=== PATIENT | female | born 1985 | race Caucasian/White ===

== ENCOUNTER 2018-03-12 19:46 | Emergency (ER) | payer OTHER, SELFPAY ==
[2018-03-12 19:46] VITALS: BP 152/77; PULSE 73; RESP 18; TEMP 36.8; O2SAT 100; BMI 34.0
--- NOTE | 2018-03-12 19:58 | RAD_ITS ---
STUDY: X-RAY - LEFT FOOT CLINICAL: Female, 32 years old. Trauma TECHNIQUE: 3 view(s) of the foot. COMPARISON: None. FINDINGS: Normal talus, calcaneus, and tarsal bones. Normal visualized subtalar, talonavicular, calcaneocuboid, tarsal and tarsometatarsal articulations. Normal metatarsi. Normal metatarsophalangeal joint of the great toe. Normal tibial and fibular sesamoid bones. Normal interphalangeal joint of the great toe. Normal phalanges of the great toe. Normal second through fifth metatarsophalangeal joints. Normal interphalangeal joints and phalanges of the lesser toes. The soft tissue structures are unremarkable. RAD/Foot min 3 Views IMPRESSION: Normal x-ray examination of the foot. Electronically Signed: Philippe Shepard MD at 20:34 EDT , Service support ,
--- NOTE | 2018-03-12 20:00 | RAD_ITS ---
STUDY: X-RAY - LEFT ANKLE REASON FOR EXAM: Female, 32 years old. Trauma TECHNIQUE: 3 view(s) of the ankle. COMPARISON: None. FINDINGS: Normal visualized distal tibia and fibula. Normal medial and lateral malleoli. Normal tibiotalar articulation and ankle mortise. Normal visualized talus and calcaneus. The visualized subtalar, talonavicular, calcaneocuboid and tarsal articulations are normal. Mild bimalleolar soft tissue swelling.. RAD/Ankle min 3 Views IMPRESSION: Bimalleolar sprain. No evidence for acute fracture Electronically Signed: Philippe Shepard MD at 20:33 EDT , Service support ,
--- NOTE | 2018-03-12 21:01 | ED.VISSUMM ---
- ER Visit Summary Date of Service: 03/12/18 Chief Complaint: Pain and swelling of left ankle and foot History of Present Illness: The patient is a 32 F who presents with pain and swelling of the left ankle and foot. She states that the car door closed on her ankle 4 days ago. Roughly 7 hours ago while walking she states her ankle popped. She has had increased pain and swelling since that time. She complains of some tingling in her toes but no weakness no loss of function. Physical Examination: Afebrile vitals are unremarkable No distress Heart regular rate and rhythm Lungs are clear Patient does have some mild soft tissue swelling of the ankle she has medial malleolar tenderness no lateral malleolar tenderness no proximal fibular tenderness no deformity she has some tenderness along the medial side of the left foot along the arch no deformity brisk capillary refill normal sensation to light touch and an easily palpable dorsalis pedis pulse. Test Results: Ankle and foot x-rays show soft tissue bimalleolar swelling no fractures. Emergency Department Course and Treatment: Stream examination are consistent with a left ankle sprain. She was given an Aircast. She was instructed on supportive care including rest ice and elevation. She was advised to follow-up as an outpatient. He was discharged home in good condition. Treatment Plan: [] Disposition: Discharge Impression: Left ankle sprain Left foot sprain This note was generated with [employer] dictation software. It may contain incorrect words, spelling, and punctuation that were not noted in review of the chart prior to signing ED Disposition - Plan for ED Patient: Chief Complaint: Lower Extremity Injury Referrals: Lawson Suarez DO [Primary Care Provider] -
--- NOTE | 2018-03-12 21:04 | ED.DEP ---
ED Disposition - Plan for ED Patient: Chief Complaint: Lower Extremity Injury Instructions: ED Sprain Ankle W X Ray Referrals: Lawson Suarez DO [Primary Care Provider] -
[2018-03-12 21:09] VITALS: RESP 16
--- NOTE | 2018-03-12 21:10 | ED.RN ---
REVIEWED D/C INSTRUCTIONS, FOLLOW UP CARE, AND S/S THAT WOULD WARRANT A RETURN TO THE ED WITH PT. PT VERBALIZED AN UNDERSTANDING AND DENIES FURTHER QUESTIONS FOR THIS RN. PT SKIN P/W/D, RESP EVEN AND UNLABORED, PT A&O X 3, NO DISTRESS NOTED. PT AMBULATED OUT OF ED, GAIT STEADY.
== END 2018-03-12 21:11 | disposition home or self-care (01) ==
PROVIDERS: Emergency Provider Emergency Medicine; Family Provider Family Medicine; PCP Family Medicine
DX: S93.402A Sprain of unspecified ligament of left ankle, initial encounter (principal); S93.602A Unspecified sprain of left foot, initial encounter; W22.8XXA Striking against or struck by other objects, initial encounter; X50.1XXA Overexertion from prolonged static or awkward postures, initial encounter; Y93.01 Activity, walking, marching and hiking; Y92.9 Unspecified place or not applicable
CPT/HCPCS: 73610; 73630; 99283

== ENCOUNTER 2019-01-03 07:13 | Emergency (ER) | payer OTHER, SELFPAY ==
[2019-01-03 07:14] VITALS: BP 133/84; PULSE 88; RESP 13; TEMP 36.9; O2SAT 98; BMI 35.4
--- NOTE | 2019-01-03 07:22 | EKG12_ITS ---
Test Reason : CP Blood Pressure : / mmHG Vent. Rate : 092 BPM Atrial Rate : 092 BPM P-R Int : 160 ms QRS Dur : 070 ms QT Int : 356 ms P-R-T Axes : 063 034 031 degrees QTc Int : 440 ms Normal sinus rhythm with sinus arrhythmia Normal ECG Confirmed by AMADA TAVAREZ ([id number]), editor sound JAYDA MARTIN ([id number]) on 01/07/2019 4:55:33 PM Referred By: WALE Confirmed By:AMADA TAVAREZ
--- NOTE | 2019-01-03 07:22 | RAD_ITS ---
STUDY: X-RAY CHEST REASON FOR EXAM: Female, 33 years old. Chest pain TECHNIQUE: Frontal and lateral views of the chest. COMPARISON: None. FINDINGS: The lungs are clear and expanded. There is no demonstrated pleural abnormality. Normal size heart. Normal mediastinum and cathleen. Normal visualized pulmonary arteries. Normal visualized aortic arch and descending thoracic aorta. Normal visualized thoracic spine. Normal visualized ribs, clavicles, and shoulders. There is no demonstrated abnormality of the visualized soft tissue structures of the upper abdomen. RAD/Chest PA and Lateral IMPRESSION: Normal x-ray examination of the chest. Electronically Signed: Micha Serrano MD at 8:13 EDT Tel , Service support ,
[2019-01-03] MEDS: 0.9% Normal Saline 1,000 ML 1000 ML IV (07:29)
[2019-01-03] MEDS: Aspirin 81 MG TAB.CHEW 324 MG PO (07:29)
[2019-01-03 07:35] VITALS: BP 125/75; PULSE 90; RESP 18; O2SAT 99
--- NOTE | 2019-01-03 07:36 | ED.VISSUMM ---
- ER Visit Summary Date of Service: 01/03/19 Chief Complaint: Chest pain History of Present Illness: The patient is a 33 F presents to the emergency department chest pain. The patient is otherwise healthy. She does have a history of PVCs which she follows with cardiology for. She has not on any medication. She states she woke this morning with a tightness in her mid chest. She describes it as a heavy pressure. She states the pain did not radiate. She states that it got a little bit better and she decided that she would be okay to go to work. She states she was driving and she got very lightheaded with increasing pain. The pain does not radiate into her back. States she went back home and called EMS. She states the pain is gotten mildly better and seems to wax and wane now. She denies being short of breath. She has had a nonproductive cough. She denies any fevers or chills. She denies any pleuritic pain. She does have history of anxiety, but states it has never been this severe. Patient has no history of coronary vascular disease. She does not smoke. Physical Examination: Vital signs reviewed General: Well-nourished, well-developed Head: Normocephalic, atraumatic Eyes: Pupils equal and reactive, extraocular muscles intact Neck, supple, no lymphadenopathy Heart: Regular rate and rhythm Respiratory: No distress, clear bilaterally Abdomen: Soft, nontender, nondistended, no peritoneal signs Back: Nontender Extremities: Nontender, no edema, no cords Skin: Normal color no rash Neuro: Alert and oriented, no focal or lateralizing deficits Test Results: [] Emergency Department Course and Treatment: EKG was obtained on patient arrival. It demonstrates sinus rhythm without acute ischemic change. There is normal axis and intervals. There is no evidence of right ventricular strain. It was unchanged from prior. IV was established. Screening labs were obtained. Patient was given aspirin. Chest x-ray is unremarkable. Screening labs are unremarkable. Cardiac enzymes are normal. However, the d-dimer was elevated. The patient underwent CTA of the chest. This does demonstrate a right lower lobe infiltrate. 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 She is been exposed to flu rather significantly within the past month. Rapid flu was obtained. The patient is started on Augmentin and azithromycin for community-acquired pneumonia. The patient has a negative rapid flu. She is not hypoxic. Is not tachypneic. She is afebrile. I do feel that she is safe for outpatient therapy. She was counseled on concerning symptoms and reasons to return. She will be discharged home. Treatment Plan: [] Disposition: Discharge Impression: 1. Community-acquired pneumonia 2. Chest pain This note was generated with [employer] dictation software. It may contain incorrect words, spelling, and punctuation that were not noted in review of the chart prior to signing ED Disposition - Plan for ED Patient: Instructions: ED Pneumonia Adult Prescriptions: Amox/Clavulanate Tablet [Augmentin Tablet] 875 mg PO Q12H #20 tab Azithromycin [Zithromax] 250 mg PO DAILY #4 tab Fluconazole [Diflucan] 150 mg PO X1 #1 tab Referrals: Lawson Suarez DO [Primary Care Provider] -
[2019-01-03 07:39] LABS: Absolute Lymphocyte Count 1.63 X10^3/ul (0.83-4.51); Absolute Neutrophil Count 7.6 X10^3/uL (2.0-7.7); Basophil# 0.04 X10^3/uL; Basophil% 0.4 % (0-1); Eosinophil# 0.29 X10^3/uL; Eosinophils% 2.8 % (0-5); Hematocrit 38.2 % (37-47); Hemoglobin 12.3 g/dl (12.0-15.0); Lymphocyte # 1.63 X10^3/ul (4.0); Lymphocyte % 15.8 % (19-41); Mean Corp Hgb Conc 32.2 g/gl (32-36); Mean Corpuscular Hgb 27.6 pg (27.0-32.0); Mean Corpuscular Volume 85.7 fL (81-99); Mean Platelet Vol. 10.5 fl (6.2-12.0); Monocyte# 0.73 X10^3/uL; Monocyte% 7.1 % (0-10); Neutrophil # 7.63 X10^3/uL (2.7-7.7); Neutrophil % 73.7 % (47-70); Platelet Count 222 K/mm3 (150-450); RBC Distribution Width CV 13.9 % (11.6-14.6); RBC Distribution Width SD 42.8 fl (35.1-43.9); Red Blood Count 4.46 M/mm3 (4.2-5.4); White Blood Count 10.3 K/mm3 (4.4-11.0)
[2019-01-03 07:43] LABS: POSITIVE COUNT NO; POSITIVE DIFFERENTIAL NO; POSITIVE MORPHOLOGY NO
[2019-01-03 07:56] LABS: Anion Gap 7 (5-15); BUN 10 mg/dL (7-18); BUN/Creat Ratio 11.9 RATIO (10-20); Calcium,Total 8.5 mg/dL (8.5-10.1); Chloride 108 mmol/L (98-107); Creatinine, Serum 0.84 mg/dL (0.55-1.02); EST Glomerular Filtration Rate 84 mL/min (>60); Est Glom Filt Rate - Afr Amer 101 mL/min (>60); Estimated Creatinine Clearance 94.37 ml/min; Glucose 106 mg/dL (74-106); Potassium 3.3 mmol/L (3.5-5.1); Sodium Level 140 mmol/L (136-145)
[2019-01-03 08:13] LABS: D-Dimer Quantitative (DVT/PE) 0.53 FEU/ug/m (0.27-0.49)
[2019-01-03 08:15] VITALS: BP 155/77; PULSE 84; RESP 19; O2SAT 98
--- NOTE | 2019-01-03 08:15 | CT_ITS ---
STUDY: CTA CHEST REASON FOR EXAM: Female, 33 years old. Elevated d-dimer and chest pain RADIATION DOSAGE (If Supplied By Facility): CTDIvol = ( 9.40 ) mGy, DLP = ( 392.41 ) mGycm TECHNIQUE: The examination was performed with the intravenous administration of Isovue 370 100 IV. Post-processing of the angiographic images was performed, with multiplanar reformation and 3D reconstruction. Individualized dose optimization techniques were used for this CT. COMPARISON: 08/13/2008 FINDINGS: Normal enhancement of the main pulmonary artery and right and left pulmonary arteries. Normal enhancement of the bilateral peripheral pulmonary arteries. There is no demonstrated pulmonary embolism. Normal thoracic aorta and visualized great vessels. There is no demonstrated aortic dissection. Normal heart and pericardium. Normal mediastinum. Normal hilar regions. Normal visualized trachea and bronchi. Right lower lobe pneumonia. Normal pleura. Normal chest wall structures. Normal osseous structures. Normal visualized upper abdomen. CT/CTA Chest W/WO Contrast IMPRESSION: No pulmonary embolus. Right lower lobe pneumonia. Electronically Signed: Micha Serrano MD at 8:46 EDT Tel , Service support ,
--- NOTE | 2019-01-03 08:15 | ED.RN ---
lab resulted ddimer 0.53, physician aware
[2019-01-03] MEDS: Azithromycin 250 MG Tablet 500 MG PO (10:12)
[2019-01-03] MEDS: Amox/Clavulanate 875 MG Tablet PO (10:12)
[2019-01-03 10:13] VITALS: RESP 18; O2SAT 97
[2019-01-03 10:41] VITALS: BP 129/61; PULSE 72; RESP 15; O2SAT 98
== END 2019-01-03 10:43 | disposition home or self-care (01) ==
PROVIDERS: Emergency Provider Emergency Medicine; Family Provider Family Medicine; PCP Family Medicine
DX: J18.9 Pneumonia, unspecified organism (principal); R07.9 Chest pain, unspecified; I49.3 Ventricular premature depolarization
CPT/HCPCS: 71046; 71275; 80048; 84484; 85025; 85379; 87804; 93005; 96360; 96361; 99285; J7030; Q9967

== ENCOUNTER → 2019-02-01 13:56 | Outpatient (CLI) | payer OTHER, SELFPAY ==
[2019-01-03 07:14] VITALS: BMI 35.4
[2019-02-18 16:46] LABS: HPV Reflexed? NOT INDICATED
== END ==
PROVIDERS: Visit Provider Obstetrics & Gynecology
DX: Z12.4 Encounter for screening for malignant neoplasm of cervix (principal)
CPT/HCPCS: 88175; G0145

== ENCOUNTER 2020-02-07 20:28 | Emergency (ER) | payer OTHER, SELFPAY ==
[2020-02-07 20:29] VITALS: BP 134/80; PULSE 77; RESP 15; TEMP 36.7; O2SAT 100; BMI 34.0
--- NOTE | 2020-02-07 20:50 | CT_ITS ---
STUDY: CT ABDOMEN AND PELVIS WITH CONTRAST REASON FOR EXAM: Female, 34 years old. LOWER ABD PAIN WORSE W/ BM, NAUSEA RADIATION DOSAGE (If Supplied By Facility): CTDIvol = ( 16.48 ) mGy, DLP = ( 998.84 ) mGycm TECHNIQUE: Transaxial images were obtained from the dome of the diaphragm to the symphysis pubis with oral contrast. Oral and amp; IV Gastrografin and amp; 100mL Isovue-370 was administered. Sagittal and coronal images were reconstructed. Individualized dose optimization techniques were used for this CT. COMPARISON: CT of abdomen and pelvis dated 06/03/2012 FINDINGS: The visualized lung bases are unremarkable. Normal liver. No intrahepatic biliary duct dilatation or liver mass. There is non-visualization of the gallbladder, which is compatible with prior cholecystectomy. Normal spleen. Normal pancreas. Normal bilateral adrenal glands. Normal right kidney. Normal left kidney. . No hydronephrosis or renal masses. No large stones. Normal visualized stomach. Normal small intestine. Normal colon. No bowel dilatation or obstruction. No free air or free fluid. The appendix is visualized and appears normal. Normal abdominal aorta. Normal inferior vena cava. Normal retroperitoneum. Normal urinary bladder. Unremarkable uterus and ovaries. A small amount of free fluid is present in the pelvic cul-de-sac. Normal abdominal wall. Normal osseous structures. CT/Abdomen/Pelvis WITH Contrast IMPRESSION: 1. No bowel dilatation or obstruction. No free air or free fluid. 2. Small amount of free fluid in the pelvic cul-de-sac. Electronically Signed: Wilmar Saavedra MD at 23:13 EDT , Service support ,
[2020-02-07] MEDS: 0.9% Normal Saline 1,000 ML 125 ML IV (21:00)
--- NOTE | 2020-02-07 21:16 | ED.VISSUMM ---
- ER Visit Summary Date of Service: 02/07/20 Chief Complaint: [Abdominal pain] History of Present Illness: The patient is a 34 F [presents to the emergency department complaint of abdominal pain that started this morning around 10 AM. Patient states the pain is been continuous. She states initially she thought maybe it started in the left lower quadrant but then seemed to move across her abdomen to the right side. Patient complains of worsening pain with movement and the bumps on the road on the way to the hospital. She had some nausea but no vomiting. She denies any fever. She denies urinary symptoms. Patient's last menstrual period was 2 weeks ago. She is G0, P0. Patient denies any abnormal vaginal discharge. She has had prior cholecystectomy.] She denies any blood in her stool or black tarry stools. Physical Examination: [HEENT-PERRLA, EOMI. Cranial nerves II through XII grossly intact. TMs clear. Mucous membranes moist. No adenopathy. Cardiovascular-regular rate and rhythm without murmur or ectopy Lungs-clear to auscultation, chest wall stable without crepitus or subcu emphysema Abdomen-normoactive bowel sounds, soft. Patient has tenderness palpation to the right lower quadrant with some guarding. Patient has a positive Rovsing sign. No rebound, rigidity, or peritoneal signs. Extremities-intact ?4, normal range of motion, normal pulses, atraumatic] Test Results: [CBC with differential obtained showed a white count of 14.9, hemoglobin 11.7, hematocrit 37, placed 216. Chemistries unremarkable. Urinalysis was normal. hCG was negative. CT scan of the abdomen pelvis with IV and p.o. contrast was obtained which showed a normal appendix and essentially nothing acute.] Emergency Department Course and Treatment: [Patient refused any pain medications in the department and she refused anything for nausea. Patient had an IV line established and was given normal saline on arrival.] Treatment Plan: [She does not anything for pain for home. She is advised to follow-up with her primary care physician within next 3 to 5 days. Patient advised to return if worsening pain, fever, vomiting, or condition should worsen anyway. Etiology of her pain is unclear at this time. She is midcycle on her menstrual. It is possible this may be mittelschmerz type pain.] Disposition: [Discharged home in stable condition] Impression: [Abdominal pain pain-etiology uncertain] This note was generated with [employer] dictation software. It may contain incorrect words, spelling, and punctuation that were not noted in review of the chart prior to signing ED Disposition - Plan for ED Patient: Referrals: Lawson Suarez DO [Primary Care Provider] -
[2020-02-07 21:18] LABS: Mucous, Urine 0 SEEN /hpf (<or=2+); White Blood Cells 0 SEEN /hpf (0-5)
[2020-02-07 21:23] LABS: Absolute Lymphocyte Count 3.63 X10^3/uL (0.83-4.51); Absolute Neutrophil Count 10.3 X10^3/uL (2.0-7.7); Basophil# 0.06 X10^3/uL; Basophil% 0.4 % (0-1); Eosinophil# 0.14 X10^3/uL; Eosinophils% 0.9 % (0-5); Hematocrit 36.9 % (37-47); Hemoglobin 11.7 g/dL (12.0-15.0); Lymphocyte # 3.63 X10^3/ul (4.0); Lymphocyte % 24.4 % (19-41); Mean Corp Hgb Conc 31.7 g/dL (32-36); Mean Corpuscular Hgb 26.5 pg (27.0-32.0); Mean Corpuscular Volume 83.7 fL (81-99); Mean Platelet Vol. 10.8 fl (6.2-12.0); Monocyte# 0.77 X10^3/uL; Monocyte% 5.2 % (0-10); NRBC Flagged by Analyzer 0 % (0-5); Neutrophil # 10.25 X10^3/uL (2.7-7.7); Neutrophil % 68.8 % (47-70); Platelet Count 216 K/mm3 (150-450); RBC Distribution Width CV 14.1 % (11.6-14.6); Red Blood Count 4.41 M/mm3 (4.2-5.4); White Blood Count 14.9 K/mm3 (4.4-11.0)
[2020-02-07 21:33] LABS: Anion Gap 7 (5-15); BUN 8 mg/dL (7-18); BUN/Creat Ratio 11.2 RATIO (10-20); Calcium,Total 8.8 mg/dL (8.5-10.1); Chloride 108 mmol/L (98-107); Creatinine, Serum 0.72 mg/dL (0.55-1.02); EST Glomerular Filtration Rate 100 mL/min (>60); Est Glom Filt Rate - Afr Amer 121 mL/min (>60); Estimated Creatinine Clearance 109.08 ml/min; Glucose 103 mg/dL (74-106); Potassium 3.5 mmol/L (3.5-5.1); Sodium Level 141 mmol/L (136-145)
[2020-02-07 21:36] LABS: Color, Urine Yellow (Yellow); Glucose, Dipstick Normal (Normal); Ketone-Dipstick 5 mg/dl (Negative); Leukocyte Esterase-Dipstick Negative /ul (Negative); Nitrite-Dipstick Negative (Negative); Occult Blood-Urine 10 /ul (Negative); Protein-Dipstick Negative (Negative); Specific Gravity, Urine 1.015 (1.002-1.030); Urine Bilirubin Dipstick Negative (Negative); Urine Clarity Sl. Cloudy (Clear); Urine Urobilinogen 4 mg/dl (Normal)
[2020-02-07 21:43] LABS: Amorphous Sediment 2+ PHOS; Bacteria RARE /hpf (None Seen); Red Blood Cells-Urine 0-5 SEEN /hpf (0-5); Squamous Epithelial Cells - UA 0-5 SEEN /hpf (5-10)
[2020-02-07 21:49] LABS: Internal QC Validated? YES +Cl - CLEAR BKGD; Pregnancy, Serum, hCG Quali. NEGATIVE Negative
[2020-02-07 22:10] VITALS: BP 132/76; PULSE 64; RESP 16; TEMP 36.8; O2SAT 100
--- NOTE | 2020-02-07 23:20 | ED.DEP ---
ED Disposition - Plan for ED Patient: Instructions: ED Abdominal Pain Unkn Cause Fem Referrals: Lawson Suarez DO [Primary Care Provider] - 3-5 Days
[2020-02-07 23:40] VITALS: RESP 16
== END 2020-02-07 23:41 | disposition home or self-care (01) ==
LOC: ED 21:22
PROVIDERS: Emergency Provider Emergency Medicine; PCP Family Medicine
DX: R10.9 Unspecified abdominal pain (principal)
CPT/HCPCS: 74177; 80048; 81001; 84703; 85025; 99283; J7030; Q9967; A4216

== ENCOUNTER 2020-02-14 15:39 | Emergency (ER) | payer OTHER, SELFPAY ==
[2020-02-14 15:40] VITALS: BP 146/89; PULSE 70; PULSE 89; RESP 17; RESP 18; TEMP 36.6; O2SAT 97; BMI 33.6
--- NOTE | 2020-02-14 16:02 | US_ITS ---
STUDY: ULTRASOUND TRANSVAGINAL CLINICAL: Female, 34 years old. HEAVY BLEEDING CRAMPING TECHNIQUE: Transvaginal COMPARISON: Pelvic ultrasound January 30, 2014 FINDINGS: Normal uterine size measuring 7.3 x 3.9 x 3.2 cm in maximal craniocaudal dimension. There are no myometrial masses. Normal endometrial thickness measuring 3 mm. There are no endometrial masses, and there is no fluid in the endometrial cavity. Normal uterine cervix. Normal right ovary, measuring 2.4 x 1.5 x 1.9 cm. There are multiple follicles without a dominant cyst. Normal left ovary, measuring 2.8 x 2.6 x 1.7 cm. 2 x 2.3 x 1.2 cm simple left ovarian cyst. Normal peripheral color blood flow and Doppler flow. There is no free fluid in the pelvis. Polycystic ovary disease: No. US/Transvaginal Non- IMPRESSION: Simple left ovarian cyst without evidence of torsion. Electronically Signed: Bobby Hager MD at 18:43 EDT , Service support ,
--- NOTE | 2020-02-14 16:04 | ED.DCSUM_ITS ---
History of Present Illness Chief Complaint: Vag Bleeding Informant: Patient Onset: Days Narrative: Patient present secondary to vaginal bleeding and increased left lower quadrant pain. Patient was seen in the ER on the with lower abdominal pain. It started in the left lower quadrant and radiated to the right. Her last menstrual cycle been 2 weeks prior to that. Her blood work did reveal slight elevation in white count and mild anemia. CT of the abdomen and pelvis was unremarkable. There was some mild free fluid and thought was that she may have had an ovarian cyst rupture. Patient states her period started 2 days ago. Today she had increased pain, worse than her typical cramps and has had 3 separate gushes of blood. She has bled through her tampons. Patient does normally wear control patch. She has not been using it since her visit on the . She has not noted fever or chills. She denies dysuria. - Past Medical History (1) Hx of cholecystectomy Status: Chronic Past Medical History - Allergies and Home Meds Allergies/Adverse Reactions: Allergies morphine Allergy (Verified 02/14/20 15:40) Anaphylaxis Primary Care Physician: Lawson Suarez DO [Primary Care Provider] - Doctors: Dr. Ovalle Prior records reviewed: Yes Lives: Spouse/ Significant Other Smoking Status: Never smoker Review of Systems General: Denies: Chills, Fever Eyes: Denies: Visual changes - bilaterally ENT: Denies: Bilateral ear pain Cardiovascular: Denies: Chest pain Respiratory: Denies: Dyspnea, Cough Gastrointestinal: Reports: Abdominal pain. Denies: Nausea, Vomiting, Diarrhea Genitourinary: Denies: Dysuria Musculoskeletal: Denies: Extremity Pain Skin: Denies: Rash Neurological: Denies: Headache Hematologic: Denies: Easy bruising, Easy bleeding Allergy: Denies: Uticaria Physical Exam Vital Signs/Narrative: Vital Signs Temp Pulse Resp BP Pulse Ox 02/14/20 15:40 97.9 F 89 17 146/89 H 97 Inital Vital Signs reviewed: Yes General: Well nourished, Well developed Head: Normocephalic ENT: Moist mucous membranes Neck: Supple Cardiovascular: Regular rate, Regular rhythm Respiratory: No distress, CTA bilaterally Abdomen: Soft, Tender - Tenderness in the inferior asked to the left lower quadrant., Hypoactive bowel sounds. Negative for: Guarding Skin: Normal color Neurological: Alert, Oriented x3 Psychological: Normal affect Diagnostic/Tx/Re-eval Impressions Transvaginal US 02/14/20 16:02 IMPRESSION: Simple left ovarian cyst without evidence of torsion. Electronically Signed: Bobby Hager MD at 18:43 EDT , Service support , 02/14/20 16:02 Transvaginal Non- [US] Stat Laboratory Results 02/14/20 02/14/20 02/14/20 16:08 16:30 16:30 WBC 10.4 RBC 4.60 Hgb 12.4 Hct 39.0 MCV 84.8 MCH 27.0 MCHC 31.8 L RDW Std Deviation 43.3 RDW Coeff of Gary 14.1 Plt Count 236 MPV 10.7 Immature Gran % (Auto) 0.300 Neut % (Auto) 60.1 Lymph % (Auto) 30.3 [place] % (Auto) 7.9 Eos % (Auto) 0.9 Baso % (Auto) 0.5 Absolute Neuts (auto) 6.3 Absolute Lymphs (auto) 3.16 Nucleated RBC % 0 Serum , Qual NEGATIVE Urine Color Yellow Urine Clarity Clear Urine pH 5.0 Ur Specific Moran 1.025 Urine Protein 100 H Urine Glucose (UA) Normal Urine Ketones 15 H Urine Occult Blood 250 H Urine Nitrite Positive H Urine Bilirubin Negative Urine Urobilinogen 1 H Ur Leukocyte Esterase 25 H Urine RBC 0-5 SEEN Urine WBC 0 SEEN Ur Squamous Epith Cells 0-5 SEEN Calcium Oxalate Crystal 1+ Urine Bacteria RARE Urine Mucus 0 SEEN - Medical Decision Making Patient declined anything for pain while here. Test results are discussed with her. White count and hemoglobin are both improved when compared to studies a week ago. Ultrasound does confirm a left ovarian cyst but no evidence of torsion is noted. 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 ED Disposition - Plan for ED Patient: Disposition: Home or Assisted Living Diagnosis: Ovarian cyst Instructions: ED Cyst Ovarian Referrals: Fracisco Rodriguez MD [STAFF PHYSICIAN] - As soon as possible
[2020-02-14 16:28] LABS: Mucous, Urine 0 SEEN /hpf (<or=2+); White Blood Cells 0 SEEN /hpf (0-5)
[2020-02-14 16:31] LABS: Color, Urine Yellow (Yellow); Glucose, Dipstick Normal (Normal); Ketone-Dipstick 15 mg/dl (Negative); Leukocyte Esterase-Dipstick 25 /ul (Negative); Nitrite-Dipstick Positive (Negative); Occult Blood-Urine 250 /ul (Negative); Protein-Dipstick 100 mg/dl (Negative); Specific Gravity, Urine 1.025 (1.002-1.030); Urine Bilirubin Dipstick Negative (Negative); Urine Clarity Clear (Clear); Urine Urobilinogen 1 mg/dl (Normal)
[2020-02-14 16:40] LABS: Absolute Lymphocyte Count 3.16 X10^3/uL (0.83-4.51); Absolute Neutrophil Count 6.3 X10^3/uL (2.0-7.7); Basophil# 0.05 X10^3/uL; Basophil% 0.5 % (0-1); Eosinophil# 0.09 X10^3/uL; Eosinophils% 0.9 % (0-5); Hemoglobin 12.4 g/dL (12.0-15.0); Lymphocyte # 3.16 X10^3/ul (4.0); Lymphocyte % 30.3 % (19-41); Mean Corp Hgb Conc 31.8 g/dL (32-36); Mean Corpuscular Volume 84.8 fL (81-99); Mean Platelet Vol. 10.7 fl (6.2-12.0); Monocyte# 0.82 X10^3/uL; Monocyte% 7.9 % (0-10); NRBC Flagged by Analyzer 0 % (0-5); Neutrophil # 6.28 X10^3/uL (2.7-7.7); Neutrophil % 60.1 % (47-70); Platelet Count 236 K/mm3 (150-450); RBC Distribution Width CV 14.1 % (11.6-14.6); RBC Distribution Width SD 43.3 fl (35.1-43.9); White Blood Count 10.4 K/mm3 (4.4-11.0)
[2020-02-14 16:53] LABS: Internal QC Validated? YES +Cl - CLEAR BKGD; Pregnancy, Serum, hCG Quali. NEGATIVE Negative
[2020-02-14 16:58] LABS: Bacteria RARE /hpf (None Seen); Calcium Oxalate Crystals Ur 1+ /hpf (<or=2+); Red Blood Cells-Urine 0-5 SEEN /hpf (0-5); Squamous Epithelial Cells - UA 0-5 SEEN /hpf (5-10)
[2020-02-14 17:39] VITALS: BP 98/67; PULSE 67; RESP 18; O2SAT 98
[2020-02-14 19:59] VITALS: BP 107/67; PULSE 72; RESP 16; O2SAT 99
== END 2020-02-14 20:00 | disposition home or self-care (01) ==
PROVIDERS: Emergency Provider Emergency Medicine; PCP Family Medicine
DX: N83.202 Unspecified ovarian cyst, left side (principal)
CPT/HCPCS: 76830; 81001; 84703; 85025; 99284; A4216

== ENCOUNTER 2020-05-10 20:43 | Emergency (ER) | payer OTHER, SELFPAY ==
[2020-05-10 20:46] VITALS: BP 128/89; PULSE 77; RESP 16; TEMP 37.4; O2SAT 99; BMI 34.0
--- NOTE | 2020-05-10 21:53 | RAD_ITS ---
STUDY: X-RAY CHEST REASON FOR EXAM: Female, 35 years old. COVID + on monday. increased SOB. TECHNIQUE: Single AP portable view of the chest. COMPARISON: 01/03/2019. FINDINGS: The lungs are clear and expanded. There is no demonstrated pleural abnormality. Normal size heart. Normal mediastinum and cathleen. Normal visualized pulmonary arteries. Normal visualized aortic arch and descending thoracic aorta. Normal visualized thoracic spine. Normal visualized ribs, clavicles, and shoulders. There is no demonstrated abnormality of the visualized soft tissue structures of the upper abdomen. RAD/Chest 1 View (Portable) IMPRESSION: Normal x-ray examination of the chest. Electronically Signed: Zachary Hollis MD at 22:36 EDT , Service support ,
--- NOTE | 2020-05-10 22:26 | ED.VIS.DYS ---
History of Present Illness Chief Complaint: Shortness of Breath Informant: Patient, EMS Onset: Days - 4 Activity at onset: Exertion Timing: Intermittent Quality: Dyspnea on exertion Current Severity: Mild Maximum Severity: Moderate Worsened by: Exertion Relieved by: Rest Associated Symptoms: Cough. 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 She was having dyspnea with exertion ever since, tonight she had shortness of breath despite resting, and it would not go away after 1.5-2 hours. She called EMS, was brought to the hospital. Her pulse ox on room air was 93-94%, 99% on 2 L nasal cannula. She had asthma as a child, but has really not dealt with that since then. She is healthy otherwise. Pain in her neck and hips but no other pain. Past Medical History - Allergies and Home Meds Allergies/Adverse Reactions: Allergies morphine Allergy (Verified 02/14/20 15:40) Anaphylaxis Primary Care Physician: Lawson Suarez DO [Primary Care Provider] - Lives: With Family Smoking Status: Never smoker Review of Systems General: Reports: Malaise. Denies: Chills, Fever, Sweats Eyes: Denies: Visual changes - bilaterally, Diplopia ENT: Reports: Rhinorrhea. Denies: Sore throat Cardiovascular: Denies: Chest pain, Palpitations Respiratory: Reports: Dyspnea, Cough, Dyspnea on exertion - and conversational Gastrointestinal: Denies: Abdominal pain, Nausea, Vomiting, Diarrhea, Melena, Hematochezia Genitourinary: Denies: Dysuria, Hematuria, Frequency Musculoskeletal: Reports: Neck pain, Extremity Pain - my hips, no other pains. Denies: Myalgias, Arthralgias, Back pain Skin: Denies: Rash, Wounds Neurological: Reports: Headache. Denies: Weakness, Numbness Physical Exam Vital Signs/Narrative: Vital Signs Temp Pulse Resp BP Pulse Ox 05/10/20 20:46 99.3 F H 77 16 128/89 H 99 General: Well nourished, Well developed, No Acute Distress - conversive in full sentences Head: Normocephalic, Atraumatic Eyes: Perrl, EOMI ENT: Moist mucous membranes, No rhinorrhea, - - POP clear Neck: Supple, Nontender Cardiovascular: Regular rate, Regular rhythm, No murmurs, Tachycardia Respiratory: No distress, CTA bilaterally, Chest nontender Abdomen: Soft, Nontender, Nondistended, Normal bowel sounds Back: Nontender, Normal Inspection. Negative for: CVA tenderness Extremities: Nontender, No edema. Negative for: Calf Tenderness Skin: Normal color, No rash, No Trauma Neurological: Alert, Oriented x3, Cranial nerves II-XII grossly intact, Normal Strength, Normal Sensation Psychological: Normal affect, Normal Mood Diagnostic/Tx/Re-eval Impressions Chest X-Ray 05/10/20 21:53 IMPRESSION: Normal x-ray examination of the chest. Electronically Signed: Zachary Hollis MD at 22:36 EDT , Service support , Chest CTA 05/10/20 22:28 IMPRESSION: No evidence for PE. Findings in both lungs suggestive of very mild scattered nonspecific multifocal inflammatory process especially in the right lower lobe. Electronically Signed: Zachary Hollis MD at 23:53 EDT , Service support , 05/10/20 21:53 Chest 1 View (Portable) [RAD] Stat 05/10/20 22:28 CTA Chest W/WO Contrast [CT] Stat Laboratory Results 05/10/20 05/10/20 21:00 21:00 WBC 6.2 RBC 4.89 Hgb 13.2 Hct 41.2 MCV 84.3 MCH 27.0 MCHC 32.0 RDW Std Deviation 42.5 RDW Coeff of Gary 13.8 Plt Count 182 MPV 10.9 Immature Gran % (Auto) 0.300 Neut % (Auto) 50.7 Lymph % (Auto) 42.0 H [place] % (Auto) 5.9 Eos % (Auto) 0.8 Baso % (Auto) 0.3 Absolute Neuts (auto) 3.1 Absolute Lymphs (auto) 2.58 Nucleated RBC % 0 Sodium 138 Potassium 3.3 L Chloride 105 Carbon Dioxide 25.0 Anion Gap 8 BUN 8 Creatinine 0.79 Estim Creat Clear Calc 98.50 Est GFR (MDRD) Af Amer 108 Est GFR (MDRD) Non-Af 89 BUN/Creatinine Ratio 10.1 Glucose 114 H Calcium 8.4 L Troponin I < 0.015 - Rhythm Strip Rhythm Strip: Sinus Rhythm Rate: 62 Ectopy: None - EKG Initial EKG Interpretation: Sinus Rhythm, No Acute Injury Pattern - normal EKG Prior: Unchanged Treatment - Dyspnea: Albuterol Repeat Evaluation: Improved With Ambulation: Tachypnea - But pulse ox no lower than 93% on room air - Medical Decision Making Initially obtain chest x-ray, it is normal, and took the patient off of oxygen. She did not desaturate, but with walking 20 feet, she became quite dyspneic. Nurses checked her pulse ox during this, on room air, she did not go below 93%. With rest, she quickly came back up and felt better, and even more so after several puffs inhaled from an albuterol inhaler. Given the propensity for venous thrombosis in context of COVID, I decided to run labs and perform CT angiography to rule out pulmonary embolism. It is negative. There were some inflammatory changes seen in the bases that are consistent with COVID, as is her white blood count in the low normal range. She did have some reactive airway disease in the past, she may benefit from a dose of Decadron, which currently has been shown to benefit COVID patient's only if they have an oxygen requirement or need to be in the ICU, she is neither of those right now, but if she does have some component of reactive airway here it may benefit her. She agrees with this and is comfortable with that, and going home. 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 She was prescribed an albuterol MDI to use as needed, and we discussed resting and not exerting herself heavily. ED Disposition - Plan for ED Patient: Disposition: Home or Assisted Living Diagnosis: COVID-19 Instructions: ED PNEUMONITIS Adult Prescriptions: Albuterol Inhaler [Ventolin Hfa] 1 - 2 puff INHALATION Q4H PRN PRN #1 inhaler PRN Reason: Wheezing Prescription Printed Referrals: Lawson Suarez DO [Primary Care Provider] - As Needed Additional Instructions: If you are able, check your pulse oximetry at home after purchasing an appropriate device. If your oxygen saturations drop below 90% for any significant period of time, resting continue to check, or may return to the ER for reevaluation. Stay hydrated. Treat any fevers with Tylenol, ibuprofen, or both.
--- NOTE | 2020-05-10 22:28 | CT_ITS ---
STUDY: CTA CHEST REASON FOR EXAM: Female, 35 years old. SOB, CP, COUGH, COVID +, FEVER, LOSS OF TASTE/SMELL RADIATION DOSAGE (If Supplied By Facility): CTDIvol = ( 11.52 ) mGy, DLP = ( 402.47 ) mGycm TECHNIQUE: The examination was performed with the intravenous administration of IV 100mL Isovue-370. Post-processing of the angiographic images was performed, with multiplanar reformation and 3D reconstruction. Individualized dose optimization techniques were used for this CT. COMPARISON: None. FINDINGS: Normal enhancement of the main pulmonary artery and right and left pulmonary arteries. Normal enhancement of the bilateral peripheral pulmonary arteries. There is no demonstrated pulmonary embolism. Normal thoracic aorta and visualized great vessels. There is no demonstrated aortic dissection. Normal heart and pericardium. Normal mediastinum. Normal hilar regions. Normal visualized trachea and bronchi. The lungs are well expanded. Scattered small areas of ill-defined pulmonary opacity in the periphery of both mid and lower lung gee and especially in the right lung base. Findings are very mild but suggestive of a nonspecific multifocal inflammatory process. No effusions Normal chest wall structures. Normal osseous structures. Normal visualized upper abdomen. CT/CTA Chest W/WO Contrast IMPRESSION: No evidence for PE. Findings in both lungs suggestive of very mild scattered nonspecific multifocal inflammatory process especially in the right lower lobe. Electronically Signed: Zachary Hollis MD at 23:53 EDT , Service support ,
--- NOTE | 2020-05-10 22:28 | EKG12_ITS ---
Test Reason : SOB Blood Pressure : / mmHG Vent. Rate : 062 BPM Atrial Rate : 062 BPM P-R Int : 154 ms QRS Dur : 082 ms QT Int : 430 ms P-R-T Axes : 039 014 020 degrees QTc Int : 436 ms Normal sinus rhythm with sinus arrhythmia Low voltage QRS Borderline ECG Confirmed by KAREEN ALICIA, MICHAEL ([id number]), purchasing expeditor HASEEB PALM ([id number]) on 05/13/2020 9:04:39 AM Referred By: SCAR Confirmed By:MICHAEL MATHUR MD
[2020-05-10 22:29] VITALS: BP 129/70; PULSE 74; RESP 22; O2SAT 99
[2020-05-10 22:31] VITALS: O2SAT 96
[2020-05-10] MEDS: 0.9% Normal Saline 1,000 ML 999 ML IV (22:41)
[2020-05-10 22:45] LABS: Absolute Lymphocyte Count 2.58 X10^3/uL (0.83-4.51); Absolute Neutrophil Count 3.1 X10^3/uL (2.0-7.7); Basophil# 0.02 X10^3/uL; Basophil% 0.3 % (0-1); Eosinophil# 0.05 X10^3/uL; Eosinophils% 0.8 % (0-5); Hematocrit 41.2 % (37-47); Hemoglobin 13.2 g/dL (12.0-15.0); Lymphocyte # 2.58 X10^3/ul (4.0); Mean Corpuscular Volume 84.3 fL (81-99); Mean Platelet Vol. 10.9 fl (6.2-12.0); Monocyte# 0.36 X10^3/uL; Monocyte% 5.9 % (0-10); NRBC Flagged by Analyzer 0 % (0-5); Neutrophil # 3.12 X10^3/uL (2.7-7.7); Neutrophil % 50.7 % (47-70); Platelet Count 182 K/mm3 (150-450); RBC Distribution Width CV 13.8 % (11.6-14.6); RBC Distribution Width SD 42.5 fl (35.1-43.9); Red Blood Count 4.89 M/mm3 (4.2-5.4); White Blood Count 6.2 K/mm3 (4.4-11.0)
[2020-05-10 22:59] LABS: Anion Gap 8 (5-15); BUN 8 mg/dL (7-18); BUN/Creat Ratio 10.1 RATIO (10-20); Calcium,Total 8.4 mg/dL (8.5-10.1); Chloride 105 mmol/L (98-107); Creatinine, Serum 0.79 mg/dL (0.55-1.02); EST Glomerular Filtration Rate 89 mL/min (>60); Est Glom Filt Rate - Afr Amer 108 mL/min (>60); Glucose 114 mg/dL (74-106); Potassium 3.3 mmol/L (3.5-5.1); Sodium Level 138 mmol/L (136-145)
[2020-05-11 00:04] VITALS: BP 101/75; PULSE 65; RESP 18; O2SAT 100
[2020-05-11] MEDS: dexAMETHasone 4 MG Tablet 8 MG PO (00:17)
== END 2020-05-11 00:23 | disposition home or self-care (01) ==
PROVIDERS: Emergency Provider Emergency Medicine; PCP Family Medicine
DX: U07.1 COVID-19 (principal)
CPT/HCPCS: 71045; 71275; 80048; 84484; 85025; 93005; 96361; 96374; 99285; Q9967; A4216

== ENCOUNTER → 2020-07-08 18:16 | Outpatient (CLI) | payer OTHER, SELFPAY ==
[2020-07-08 15:19] VITALS: BMI 34.0
== END ==
PROVIDERS: PCP Family Medicine; Visit Provider Obstetrics & Gynecology
DX: N89.8 Other specified noninflammatory disorders of vagina (principal)
CPT/HCPCS: 87070; 87205

== ENCOUNTER → 2020-07-17 09:44 | Outpatient (CLI) | payer OTHER, SELFPAY ==
[2020-07-08 15:19] VITALS: BMI 34.0
--- NOTE | 2020-07-19 06:07 | PFT ---
INTRODUCTION: The patient is a 35-year-old female that presents for pulmonary function studies secondary to a diagnosis of shortness of breath. Respiratory therapy reports good patient effort. Bronchodilators were used during testing. INTERPRETATION: Forced expiration spirometry demonstrates no evidence of a large airways obstructive ventilatory defect. There was no significant response to aerosolized bronchodilators. Spirograms are of good quality and plateau normally. Body plethysmography was performed and revealed a decreased TLC to 4.82 L, 84% of predicted, indicative of a mild restrictive ventilatory impairment. Diffusing capacity by single breath CO is at the lower limits of normal. IMPRESSION: Isolated mild restrictive ventilatory impairment.
== END ==
PROVIDERS: PCP Family Medicine; Referring Provider Family Medicine; Visit Provider Family Medicine
DX: J45.909 Unspecified asthma, uncomplicated (principal)
CPT/HCPCS: 94060; 94726; 94729

== ENCOUNTER 2020-09-02 11:55 | Outpatient (RCR) | payer OTHER, SELFPAY ==
[2020-08-10 10:52] VITALS: BMI 34.4
--- NOTE | 2020-10-08 09:07 | DS.PCM_ITS ---
Massage Therapy Discharge Summary: Initial Evaluation Date: 09/02/2020 Diagnosis: M54.2 No. of Visits: 1 Date of last visit: 09/02/2020 This patient is being discharged from our care at the [facility]. Thank you, Yazmin Wisdom LMT
== END 2020-09-02 19:00 | disposition home or self-care (01) ==
LOC: MASS 11:55
PROVIDERS: PCP Family Medicine; Visit Provider Family Medicine
DX: M54.2 Cervicalgia (principal)
CPT/HCPCS: 97124

== ENCOUNTER → 2020-11-18 11:27 | Outpatient (CLI) | payer OTHER, SELFPAY ==
[2020-11-18 08:01] VITALS: BMI 34.4
[2020-11-18 14:06] LABS: BNP,B-Type NATRIURETIC PEPTIDE 93.7 pg/mL (0-100)
[2020-11-18 14:35] LABS: Thyroid Stim Hormone (TSH) 0.97 uIU/mL (0.358-3.74)
== END ==
PROVIDERS: PCP Family Medicine; Referring Provider Internal Medicine Cardiovascular Disease; Visit Provider Internal Medicine Cardiovascular Disease
DX: R00.2 Palpitations (principal); Z86.19 Personal history of other infectious and parasitic diseases
CPT/HCPCS: 36415; 83880; 84443

== ENCOUNTER → 2020-11-19 13:35 | Outpatient (CLI) | payer OTHER, SELFPAY ==
[2020-11-18 08:01] VITALS: BMI 34.4
== END ==
PROVIDERS: PCP Family Medicine; Visit Provider Internal Medicine Cardiovascular Disease
DX: R00.2 Palpitations (principal); I47.1 Supraventricular tachycardia
CPT/HCPCS: 93225; 93226

== ENCOUNTER → 2020-11-27 08:49 | Outpatient (CLI) | payer OTHER, SELFPAY ==
[2020-11-18 08:01] VITALS: BMI 34.4
--- NOTE | 2020-11-27 08:51 | ECHOD_ITS ---
Reason For Study: Arrhythmia Procedure This was a 2D Doppler, Color Flow transthoracic echocardiogram. Exam performed in department. Left Ventricle Normal LV size. Left ventricular systolic function is normal. The estimated ejection fraction is 65 %. Normal diastology for age. No regional wall motion abnormalities noted. Right Ventricle Normal RV size. Normal systolic function. Atria Normal left atrium. Normal right atrium. Mitral Valve Normal mitral valve. Tricuspid Valve Normal tricuspid valve. Aortic Valve Normal aortic valve. Trisinus/trileaflet aortic valve. Pulmonic Valve Normal pulmonic valve. Great Vessels Normal aortic root. The pulmonary artery is normal size. Normal inferior vena cava. Pericardium/Pleural No pericardial effusion. MMode/2D Measurements & Calculations LVIDd: 4.3 cm IVSd: 0.89 cm LA dimension: 3.5 cm LVIDs: 2.8 cm LVPWd: 0.87 cm FS: 35.2 % LAV(MOD-bp): 54.7 ml LA A4 area: 18.4 cm2 RA A4 area: 14.0 cm2 LAV(MOD-bp) Indexed: 26.0 ml/m2 LAV(MOD-sp2): 58.1 ml LAV(MOD-sp4): 50.9 ml Time Measurements MV dec time: 0.19 sec Doppler Measurements & Calculations MV E max luther: 106.1 cm/sec Lat Peak E' Luther: 22.1 cm/sec Med Peak E' Luther: 11.1 cm/sec MV A max luther: 64.5 cm/sec E/E' lat: 4.8 E/E' med: 9.6 MV E/A: 1.6 MV V2 max: 109.4 cm/sec MV P1/2t max luther: 107.4 cm/sec Ao V2 max: 134.2 cm/sec MV max P.8 mmHg MV P1/2t: 66.5 msec Ao max P.2 mmHg MV V2 mean: 53.1 cm/sec MV dec slope: 473.1 cm/sec2 MV mean P.4 mmHg MVA(P1/2t): 3.3 cm2 MV V2 VTI: 29.9 cm LV V1 max: 115.3 cm/sec PA V2 max: 107.9 cm/sec TR max luther: 186.2 cm/sec LV V1 max P.3 mmHg TR max P.9 mmHg Interpretation Summary Normal LV size. Left ventricular systolic function is normal. The estimated ejection fraction is 65 %. Normal diastology for age. Structurally normal valves. Ordering Physician: Sadi Mann Referring Physician: Lawson Suarez Performed By: Bhavin Leonard RCS
== END ==
PROVIDERS: PCP Family Medicine; Referring Provider Internal Medicine Cardiovascular Disease; Visit Provider Internal Medicine Cardiovascular Disease
DX: I47.1 Supraventricular tachycardia (principal); R00.2 Palpitations
CPT/HCPCS: 93306

== ENCOUNTER → 2021-06-18 12:46 | Outpatient (CLI) | payer OTHER, SELFPAY ==
[2021-05-25 15:07] VITALS: BMI 34.4
[2021-06-18 13:40] LABS: Absolute Neutrophil Count 7.7 X10^3/uL (2.0-7.7); Basophil# 0.06 X10^3/uL; Basophil% 0.5 % (0-1); Eosinophil# 0.11 X10^3/uL; Hematocrit 38.5 % (37-47); Hemoglobin 12.4 g/dL (12.0-15.0); Lymphocyte % 24.8 % (19-41); Mean Corp Hgb Conc 32.2 g/dL (32-36); Mean Corpuscular Hgb 27.5 pg (27.0-32.0); Mean Corpuscular Volume 85.4 fL (81-99); Mean Platelet Vol. 10.7 fl (6.2-12.0); Monocyte# 0.55 X10^3/uL; Monocyte% 4.9 % (0-10); NRBC Flagged by Analyzer 0 % (0-5); Neutrophil # 7.72 X10^3/uL (2.7-7.7); Neutrophil % 68.5 % (47-70); Platelet Count 239 K/mm3 (150-450); RBC Distribution Width CV 13.4 % (11.6-14.6); RBC Distribution Width SD 42.2 fl (35.1-43.9); Red Blood Count 4.51 M/mm3 (4.2-5.4); White Blood Count 11.3 K/mm3 (4.4-11.0)
[2021-06-18 14:10] LABS: ALB/GLOB Ratio 0.7 RATIO (0.9-2.4); AST(SGOT) 11 U/L (15-37); Alanine Aminotransfer ALT/SGPT 18 U/L (13-56); Albumin, Serum 3.1 g/dL (3.2-5.0); Alkaline Phosphatase 118 U/L (45-117); Anion Gap 6 (5-15); BUN 7 mg/dL (7-18); BUN/Creat Ratio 10.3 RATIO (10-20); Calcium,Total 8.5 mg/dL (8.5-10.1); Chloride 106 mmol/L (98-107); Cholesterol 164 mg/dL (200); Creatinine, Serum 0.68 mg/dL (0.55-1.02); EST Glomerular Filtration Rate 105 mL/min (>60); Est Glom Filt Rate - Afr Amer 127 mL/min (>60); Globulin 4.3 g/dL (2.2-4.2); Glucose 92 mg/dL (74-106); High Density Lipoprotein 56 mg/dL; Potassium 3.7 mmol/L (3.5-5.1); Protein, Total 7.4 g/dL (6.4-8.2); Sodium Level 139 mmol/L (136-145); Triglycerides 113 mg/dL; Very Low Density Lipoprotein 23 mg/dL (5-40)
== END ==
PROVIDERS: PCP Family Medicine; Referring Provider Family Medicine; Visit Provider Family Medicine
DX: Z00.00 Encounter for general adult medical examination without abnormal findings (principal)
CPT/HCPCS: 36415; 80053; 80061; 85025

== ENCOUNTER 2022-01-15 16:46 | Emergency (ER) | payer OTHER, SELFPAY ==
[2022-01-15 16:49] VITALS: BP 149/71; PULSE 101; RESP 20; TEMP 36.9; O2SAT 99; BMI 34.7
[2022-01-15 16:53] VITALS: BP 136/81; PULSE 108; RESP 16; O2SAT 99
--- NOTE | 2022-01-15 17:07 | EDS_ITS ---
HPI History of Present Illness Chief Complaint: Palpitations Narrative Narrative: 36-year-old female with history of paroxysmal SVT after gabby Covid about 2 years ago. She is on metoprolol for this. She states took her metoprolol today because her heart rate was about 150. It did come down however she still feels like she is having palpitations. She states she does not have chest pain or shortness of breath. Patient is admitting that she has nausea and some diarrhea. No black or bloody stools. She does report this is not necessarily out of the ordinary. She does not have any abdominal pain but does state that she has some cramping. Denies urinary complaints. Patient does report that she feels lightheaded when she is walking. She does not feel vertiginous. She feels like she might faint and she sits down. PFSH [facility] Medical History History of 2019 novel coronavirus disease (COVID-19) (05/07/20) Neck pain Obesity (BMI 30.0-34.9) Seasonal allergies Segmental and somatic dysfunction of cervical region Segmental and somatic dysfunction of lumbar region Segmental and somatic dysfunction of pelvic region Segmental and somatic dysfunction of thoracic region Home Medications norelgestromin 150 mcg-e.estradiol 35 mcg/24 hr weekly transderm patch 1 ea TD DAILY 03/12/18 [History Last Taken Unknown] fexofenadine 180 mg tablet 180 mg PO DAILY 07/08/20 [History Last Taken Unknown] norelgestromin 150 mcg-e.estradiol 35 mcg/24 hr weekly transderm patch 1 patch TRANSDERMAL Q7D #9 ea 04/12/21 [Rx Last Taken Unknown] metoprolol succinate 12.5 mg PO QHS 01/15/22 [History Last Taken Unknown] promethazine 25 mg PO TID PRN #14 tab 01/15/22 [Rx Last Taken Unknown] Allergy/AdvReac Type Severity Reaction Status Date / Time morphine Allergy Anaphylaxis Verified 04/12/21 13:03 Family History Grandmother Diabetes Father Factor 5 Leiden mutation, heterozygous Grandfather Heart disease Surgical History H/O laparoscopy Hx of cholecystectomy (2008) Hx of wisdom tooth extraction (2015) Social History Smoking Status: Never smoker alcohol intake: current details: occasionally substance use type: does not use caffeine: Yes what type of physical activity do you participate in: aerobics and weight training frequency: 3-4 times per week seatbelt use: always do you feel safe at home: Yes additional social history: Iqzltcn-Aebv-Jozkpme 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 ROS ROS ED Constitutional Constitutional ED: Denies chills or fever(s) Eyes Eyes: Denies blurry vision ENT ENT ED: Denies rhinorrhea or sore throat Cardiovascular Cardiovascular: Reports palpitations; Denies chest pain Respiratory/Chest Respiratory/Chest: Denies cough, dyspnea or sputum Gastrointestinal Gastrointestinal: Reports diarrhea and nausea; Denies abdominal pain Genitourinary Genitourinary ED: Denies dysuria or hematuria Musculoskeletal Musculoskeletal: Denies arthralgias or myalgias Integumentary Denies rash Neurologic Neurologic: Denies headache(s) or paresthesias Psychiatric Psychiatric: Denies anxiety or depression EXAM Physical Exam Const Vital Signs: 01/15/22 16:49 01/15/22 16:53 Temperature 98.4 F Temperature Source Temporal Pulse Rate 101 H 108 H Respiratory Rate 20 H 16 Respiratory Effort Normal Blood Pressure 149/71 H 136/81 H Blood Pressure Mean 97 99 Pulse Ox 99 99 Oxygen Delivery Method Room Air Room Air Positive well nourished General Appearance ED: NAD HEENT Reports moist mucous membranes Eyes PERRL and EOMs intact bilaterally Resp normal respiratory effort and clear to auscultation bilaterally Cardio regular rhythm Rate: tachycardic Neuro oriented x3, CN's II-XII intact bilaterally and no sensory deficits noted Sensorium / Orientation: alert Motor Exam: strength 5/5 throughout Psych mental status grossly normal MDM MDM MDM Narrative Medical decision making narrative: Patient presents with nausea and diarrhea for the course of the day. She also presents with palpitations and has a history of paroxysmal SVT. Patient took an extra dose of her metoprolol tonight but did not take a additional dose even though she is having palpitations. Patient not have any abdominal pain, chest pain, shortness of breath, fever. Patient given 2 L of IV fluids and oral Phenergan. Lab work is obtained and her CBC and CMP are unremarkable with exception of an alkaline phosphatase of 131. Patient feels improvement with treatment. She feels well enough to go home at this point and I will prescribe her Phenergan. 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 Impression: 1. Palpitations 2. Nausea 3. Diarrhea Lab Data Labs: Laboratory Results - last 24 hr 01/15/22 01/15/22 17:25 17:25 WBC 11.9 H RBC 4.82 Hgb 13.6 Hct 41.6 MCV 86.3 MCH 28.2 MCHC 32.7 RDW Std Deviation 43.5 RDW Coeff of [place] 13.7 Plt Count 211 MPV 11.0 Immature Gran % (Auto) 0.300 Neut % (Auto) 85.9 H Lymph % (Auto) 8.2 L [place] % (Auto) 5.1 Eos % (Auto) 0.2 Baso % (Auto) 0.3 Absolute Neuts (auto) 10.2 H Absolute Lymphs (auto) 0.98 Nucleated RBC % 0 Sodium 137 Potassium 3.6 Chloride 106 Carbon Dioxide 24.0 Anion Gap 7 BUN 8 Creatinine 0.77 Estim Creat Clear Calc 100.11 Est GFR (MDRD) Af Amer 109 Est GFR (MDRD) Non-Af 90 BUN/Creatinine Ratio 10.3 Glucose 85 Calcium 8.5 Magnesium 1.9 Total Bilirubin 0.80 AST 14 L ALT 18 Alkaline Phosphatase 131 H Total Protein 7.3 Albumin 3.0 L Globulin 4.3 H Albumin/Globulin Ratio 0.7 L Discharge Plan Triage Chief Complaint: Palpitations ED Provider: Rakesh Su Dx/Rx/DC Orders Instructions: ED Palpitations, ED Gastroenteritis, Viral (Adult) Prescriptions: New promethazine 25 mg tablet 25 mg PO TID PRN (Reason: nausea and vomiting) Qty: 14 RF: 0 No Action norelgestromin-ethin.estradiol 150-35 mcg/24 hr patch weekly 1 patch transdermal Q7D Qty: 9 RF: 4 fexofenadine [Sammie Allergy] 180 mg tablet 180 mg PO DAILY RF: 0 norelgestromin-ethin.estradiol 1 EACH patch weekly 1 ea TD DAILY RF: 0 Hold Instructions: Order Changed metoprolol succinate 25 mg tablet extended release 24 hr 12.5 mg PO QHS RF: 0 Primary Care Provider: Lawson Suarez Referrals: Lawson Suarez DO [Primary Care Provider] - Disposition Disposition: Home, Self Care
[2022-01-15] MEDS: proMETHazine 25 MG Tablet PO (17:34)
[2022-01-15] MEDS: 0.9% Normal Saline 1,000 ML 2000 ML IV (17:35)
[2022-01-15 17:48] LABS: Absolute Lymphocyte Count 0.98 X10^3/uL (0.83-4.51); Absolute Neutrophil Count 10.2 X10^3/uL (2.0-7.7); Basophil# 0.04 X10^3/uL; Basophil% 0.3 % (0-1); Eosinophil# 0.02 X10^3/uL; Eosinophils% 0.2 % (0-5); Hematocrit 41.6 % (37-47); Hemoglobin 13.6 g/dL (12.0-15.0); Lymphocyte # 0.98 X10^3/ul (0.83-4.51); Lymphocyte % 8.2 % (19-41); Mean Corp Hgb Conc 32.7 g/dL (32-36); Mean Corpuscular Hgb 28.2 pg (27.0-32.0); Mean Corpuscular Volume 86.3 fL (81-99); Monocyte# 0.61 X10^3/uL; Monocyte% 5.1 % (0-10); NRBC Flagged by Analyzer 0 % (0-5); Neutrophil % 85.9 % (47-70); Platelet Count 211 K/mm3 (150-450); RBC Distribution Width CV 13.7 % (11.6-14.6); RBC Distribution Width SD 43.5 fl (35.1-43.9); Red Blood Count 4.82 M/mm3 (4.2-5.4); White Blood Count 11.9 K/mm3 (4.4-11.0)
[2022-01-15 18:08] LABS: ALB/GLOB Ratio 0.7 RATIO (0.9-2.4); AST(SGOT) 14 U/L (15-37); Alanine Aminotransfer ALT/SGPT 18 U/L (13-56); Alkaline Phosphatase 131 U/L (45-117); Anion Gap 7 (5-15); BUN 8 mg/dL (7-18); BUN/Creat Ratio 10.3 RATIO (10-20); Calcium,Total 8.5 mg/dL (8.5-10.1); Chloride 106 mmol/L (98-107); Creatinine, Serum 0.77 mg/dL (0.55-1.02); EST Glomerular Filtration Rate 90 mL/min (>60); Est Glom Filt Rate - Afr Amer 109 mL/min (>60); Estimated Creatinine Clearance 100.11 ml/min; Globulin 4.3 g/dL (2.2-4.2); Glucose 85 mg/dL (74-106); Magnesium 1.9 mg/dL (1.6-2.6); Potassium 3.6 mmol/L (3.5-5.1); Protein, Total 7.3 g/dL (6.4-8.2); Sodium Level 137 mmol/L (136-145)
[2022-01-15] MEDS: 0.9% Normal Saline 1,000 ML 999 ML IV (18:26)
== END 2022-01-15 19:46 | disposition home or self-care (01) ==
PROVIDERS: Emergency Provider Student in an Organized Health Care Education/Training Program; PCP Family Medicine; Visit Provider Student in an Organized Health Care Education/Training Program
DX: R00.2 Palpitations (principal); R11.0 Nausea; R19.7 Diarrhea, unspecified; Z79.899 Other long term (current) drug therapy; Z86.16 Personal history of COVID-19
CPT/HCPCS: 80053; 83735; 85025; 87635; 96360; 96361; 99284; J7030; A4216; U0003; U0005

== ENCOUNTER 2022-01-22 10:45 | Outpatient (CLI) | payer OTHER, SELFPAY | END 2022-01-22 23:59 | disposition home or self-care (01) | LOC: LAB 10:47 | PROVIDERS: PCP Family Medicine; Referring Provider Family Medicine; Visit Provider Family Medicine | DX: R00.2 Palpitations (principal); R19.7 Diarrhea, unspecified | CPT/HCPCS: 81050; 83497 ==

== ENCOUNTER 2022-01-24 16:39 | Outpatient (CLI) | payer OTHER, SELFPAY | END 2022-01-24 23:59 | disposition home or self-care (01) | LOC: LABSPEC 16:40 | PROVIDERS: PCP Family Medicine; Visit Provider Family Medicine | DX: R00.2 Palpitations (principal); R19.7 Diarrhea, unspecified | CPT/HCPCS: 81050; 82384; 82570; 83835 ==

== ENCOUNTER → 2022-03-17 | Outpatient (CLI) | payer OTHER, SELFPAY ==
[2022-03-29 18:15] LABS: 5-HIAA, 24UR 3.1 mg/24 hr (0.0-14.9); 5-HIAA, UR 2.6 mg/L (Undefined)
== END | disposition home or self-care (01) ==
LOC: LABSPEC 08:25
PROVIDERS: PCP Family Medicine; Visit Provider Family Medicine
DX: R00.2 Palpitations (principal); R19.7 Diarrhea, unspecified
CPT/HCPCS: 81050; 83497

== ENCOUNTER → 2022-07-29 | Outpatient (CLI) | payer OTHER, SELFPAY ==
[2022-07-29 14:21] LABS: Absolute Lymphocyte Count 2.25 X10^3/uL (0.83-4.51); Absolute Neutrophil Count 7.8 X10^3/uL (2.0-7.7); Basophil# 0.06 X10^3/uL; Basophil% 0.6 % (0-1); Eosinophil# 0.05 X10^3/uL; Eosinophils% 0.5 % (0-5); Hematocrit 40.4 % (37-47); Hemoglobin 12.7 g/dL (12.0-15.0); Lymphocyte # 2.25 X10^3/ul (0.83-4.51); Lymphocyte % 20.8 % (19-41); Mean Corp Hgb Conc 31.4 g/dL (32-36); Mean Corpuscular Hgb 26.9 pg (27.0-32.0); Mean Corpuscular Volume 85.6 fL (81-99); Mean Platelet Vol. 10.7 fl (6.2-12.0); Monocyte% 5.6 % (0-10); NRBC Flagged by Analyzer 0 % (0-5); Neutrophil # 7.81 X10^3/uL (2.7-7.7); Neutrophil % 72.2 % (47-70); Platelet Count 237 K/mm3 (150-450); RBC Distribution Width CV 14.5 % (11.6-14.6); RBC Distribution Width SD 45.3 fl (35.1-43.9); Red Blood Count 4.72 M/mm3 (4.2-5.4); White Blood Count 10.8 K/mm3 (4.4-11.0)
[2022-07-29 14:56] LABS: ALB/GLOB Ratio 0.8 RATIO (0.9-2.4); AST(SGOT) 11 U/L (15-37); Alanine Aminotransfer ALT/SGPT 22 U/L (13-56); Albumin, Serum 3.3 g/dL (3.2-5.0); Alkaline Phosphatase 112 U/L (45-117); Anion Gap 7 (5-15); BUN 6 mg/dL (7-18); BUN/Creat Ratio 8.1 RATIO (10-20); Calcium,Total 9.1 mg/dL (8.5-10.1); Chloride 106 mmol/L (98-107); Creatinine, Serum 0.74 mg/dL (0.55-1.02); EST Glomerular Filtration Rate 94 mL/min (>60); Est Glom Filt Rate - Afr Amer 114 mL/min (>60); Globulin 4.1 g/dL (2.2-4.2); Glucose 86 mg/dL (74-106); Potassium 3.8 mmol/L (3.5-5.1); Protein, Total 7.4 g/dL (6.4-8.2); Sodium Level 140 mmol/L (136-145); T4 Free Direct 1.06 ng/dL (0.76-1.46); Thyroid Stim Hormone (TSH) 1.23 uIU/mL (0.358-3.74)
[2022-07-29 15:02] LABS: Vitamin B12 501 pg/mL (211-911); Vitamin D,25 Hydroxy 40.2 ng/mL
[2022-07-29 15:59] LABS: NATERA MAILED SPECIMEN
[2022-08-08 19:03] LABS: HPV APTIMA, High Risk Negative
== END | disposition home or self-care (01) ==
PROVIDERS: PCP Family Medicine; Visit Provider Obstetrics & Gynecology
DX: Z12.4 Encounter for screening for malignant neoplasm of cervix (principal); Z80.0 Family history of malignant neoplasm of digestive organs; Z80.41 Family history of malignant neoplasm of ovary
CPT/HCPCS: 36415; 80053; 82306; 82607; 84439; 84443; 85025; 87624; 88175; G0145

== ENCOUNTER → 2023-01-11 | Outpatient (CLI) | payer OTHER, SELFPAY ==
--- NOTE | 2023-01-11 14:26 | US_ITS ---
STUDY: ULTRASOUND BREAST - RIGHT REASON FOR EXAM: Female, 37 years old. Palpable lump in the right breast. TECHNIQUE: Axial and longitudinal images of the RIGHT breast were performed with a high resolution ultrasound transducer. # OF IMAGES: 91 COMPARISON: Comparison is made with prior mammogram done earlier today. FINDINGS: RIGHT Breast: The mammographic abnormality corresponds to multiple cysts in the right breast. The largest cyst in the right breast measures 2.7 cm x 2.5 cm x 2.6 cm. This is at the 11:00 position of the breast at 6 cm from the nipple. IMPRESSION: Multiple breast cysts. ASSESSMENT CATEGORY: BIRADS Category 2: Benign. A letter regarding these results will be sent to the patient by the facility within 30 days. Electronically Signed: Scottie Vallejo MD at 15:48 EDT , STUDY: ULTRASOUND BREAST - LEFT REASON FOR EXAM: Female, 37 years old. Palpable lump left breast. TECHNIQUE: Axial and longitudinal images of the LEFT breast were performed with a high resolution ultrasound transducer. # OF IMAGES: 91 COMPARISON: Comparison is made with prior mammogram done earlier today. FINDINGS: LEFT Breast: Multiple cysts are seen in the left breast. The largest cyst measures 1.5 cm x 1.7 cm x 0.7 cm. This is at the 2:00 position in the breast at 3 cm from the nipple. US/Breast Complete Bilateral IMPRESSION: Multiple cysts are seen in the left breast. ASSESSMENT CATEGORY: BIRADS Category 2: Benign. A letter regarding these results will be sent to the patient by the facility within 30 days. Electronically Signed: Scottie Vallejo MD at 15:49 EDT ,
--- NOTE | 2023-01-11 14:26 | BI_ITS ---
MAMMOGRAPHY - BILATERAL DIAGNOSTIC REASON FOR EXAM: Female, 37 years old. One month history of right breast lump. PERTINENT HISTORY: Non-contributory. TECHNIQUE: Digital bilateral breast antonio (3D mammographic acquisition) in the CC and MLO projections. 2-D mediolateral oblique (MLO) and craniocaudad (CC) views of both breasts were obtained. CAD: Full Field Digital Mammography with Computer Added Detection was performed. COMPARISON: None. Baseline examination. FINDINGS: Breast Composition: The breasts are extremely dense, which lowers the sensitivity of mammography. Asymmetrical density is seen in the upper outer quadrant of the right breast as compared to the left side. Nodular densities are seen in the upper-outer quadrants of both breasts. Correlation with ultrasound of both breasts is recommended for further evaluation. No other significant abnormalities are identified. BI/DIAG MAMM W/CAD, BILAT IMPRESSION: Bilateral breast nodules. Correlation with ultrasound is recommended. ASSESSMENT CATEGORY: BIRADS Category 0: Incomplete. Need additional imaging evaluation. A letter regarding these results will be sent to the patient by the facility within 30 days. Approximately 10% of breast cancers are not detected by mammography. A normal mammogram should not delay biopsy of a clinically suspicious abnormality. Electronically Signed: Scottie Vallejo MD at 15:46 EDT ,
== END | disposition home or self-care (01) ==
PROVIDERS: PCP Family Medicine; Visit Provider Nurse Practitioner Women's Health
DX: N63.10 Unspecified lump in the right breast, unspecified quadrant (principal)
CPT/HCPCS: 76641; 77062; 77066; G0279

== ENCOUNTER 2023-04-12 05:27 | Emergency (ER) | payer OTHER, SELFPAY ==
[2023-04-12 05:28] VITALS: BP 136/80; PULSE 74; RESP 16; TEMP 36.1; O2SAT 100; BMI 35.2
--- NOTE | 2023-04-12 05:55 | CT_ITS ---
STUDY: CT ABDOMEN AND PELVIS WITH CONTRAST - URINARY TRACT REASON FOR EXAM: Female, 37 years old. Abdominal pain -- IV PO Contrast RADIATION DOSAGE (If Supplied By Facility): CTDIvol = ( 15.51 ) mGy, DLP = ( 1131.14 ) mGycm TECHNIQUE: IV 100mL Isovue-370 was administered. Transaxial images were obtained from the dome of the diaphragm to the symphysis pubis subsequent to intravenous contrast administration. In the arterial, nephrographic and excretory phases. Multiplanar coronal and sagittal images were reformatted. Individualized Dose Optimization Techniques Were Used For This CT. COMPARISON: February 07, 2020 FINDINGS: The visualized lung bases are unremarkable. The visualized portions of the heart are within normal limits. There is a stable low-attenuation focus within the left hepatic lobe adjacent to the falciform ligament cyst or focal fat. There is non-visualization of the gallbladder, which may be secondary to either contraction or a prior cholecystectomy. Normal spleen. Normal pancreas. Normal bilateral adrenal glands. Normal visualized stomach. Normal small intestine. Normal colon. The appendix is visualized and appears normal. Normal abdominal aorta. No retroperitoneal adenopathy. Normal right kidney. Normal left kidney. Normal urinary bladder. Normal abdominal wall. Normal osseous structures. CT/Abdomen/Pelvis WITH Contrast IMPRESSION: No acute intra-abdominal process. Electronically Signed: Nancy Ayers MD at 8:24 EDT ,
--- NOTE | 2023-04-12 06:00 | ED.VIS.GI ---
HPI HPI - GI History of Present Illness Chief Complaint: Nausea/Vomiting Informant: patient Abdominal Pain/Flank Pain Onset: Days (5) Context: Gradual Onset Timing: Continuous Quality: Cramping Location: Diffuse Worsened by: Food Relieved by: Nothing Nausea/Vomiting/Emesis GI Symptom: Positive for Nausea; Negative for Vomiting Diarrhea/Melena/Hematochezia GI Symptom: Negative for Diarrhea, Melena or Hematochezia Associated Symptoms Associated Symptoms: Negative for Dysuria, Frequency or Hematuria Narrative Narrative: Patient presents with abdominal pain and nausea that has been getting worse over the past 5 days. Patient states it is gradually getting worse. Patient describes it as cramping. Patient states it is diffuse across her abdomen. Patient states it is worse with trying to eat any food. Patient states she has been able to keep some liquids down. Patient states nothing seems to help with it. Patient admits to nausea but denies any vomiting. Patient denies any diarrhea, melena, or hematochezia. Patient states she has not had a bowel movement in the last 5 days. Patient states she is able to pass some flatus. PFSH [facility] Medical History Genetic testing of female History of 2019 novel coronavirus disease (COVID-19) (05/07/20) Neck pain Obesity (BMI 30.0-34.9) Seasonal allergies Segmental and somatic dysfunction of cervical region Segmental and somatic dysfunction of lumbar region Segmental and somatic dysfunction of pelvic region Segmental and somatic dysfunction of thoracic region SVT (supraventricular tachycardia) Home Medications multivitamin 1 tab PO DAILY 07/29/22 [History Last Taken Unknown] ondansetron HCl 4 mg tablet 4 mg PO Q8H 07/29/22 [History Last Taken Unknown] propranolol 10 mg tablet 10 tablet PO BID 09/28/22 [History Last Taken Unknown] Allergy/AdvReac Type Severity Reaction Status Date / Time morphine Allergy Anaphylaxis Verified 01/10/23 08:50 Family History Grandmother Diabetes Father Factor 5 Leiden mutation, heterozygous Grandfather Heart disease Aunt Ovarian cancer Surgical History H/O laparoscopy Hx of cholecystectomy (2007) Hx of wisdom tooth extraction (2014) Social History Smoking Status: Never smoker alcohol intake: current details: occasionally substance use type: does not use caffeine: Yes what type of physical activity do you participate in: aerobics and weight training frequency: 3-4 times per week seatbelt use: always do you feel safe at home: Yes 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[employer] ROS ROS ED Constitutional Constitutional ED: Denies chills or fever(s) Eyes Eyes: Denies blurry vision or change in vision ENT ENT ED: Denies rhinorrhea or sore throat Cardiovascular Cardiovascular: Denies chest pain or palpitations Respiratory/Chest Respiratory/Chest: Denies cough or dyspnea Gastrointestinal Gastrointestinal: Reports abdominal pain, constipation and nausea; Denies vomiting Genitourinary Genitourinary ED: Denies dysuria or hematuria Musculoskeletal Musculoskeletal: Denies back pain or neck pain Integumentary Denies abscess or rash Neurologic Neurologic: Denies headache(s) or weakness Allergic/Immunologic Allergic/Immunologic ED: Denies mouth swelling or urticaria EXAM Physical Exam Const Vital Signs: 04/12/23 05:28 04/12/23 07:49 04/12/23 08:20 Temperature 97 F L Temperature Source Temporal Pulse Rate 74 65 Respiratory Rate 16 16 Blood Pressure 136/80 H 114/72 Blood Pressure Mean 98 86 Pulse Ox 100 100 Oxygen Delivery Method Room Air Room Air Positive well nourished and well developed General Appearance ED: well developed and NAD HEENT Reports moist mucous membranes Neck supple and no JVD Resp normal respiratory effort and clear to auscultation bilaterally Cardio regular rate and regular rhythm GI normal to inspection, nondistended, normoactive bowel sounds Palpation: soft and tender epigastric, LLQ, RLQ, LUQ, RUQ, periumbilical and suprapubic; Negative for guarding or rebound tenderness present Neuro oriented x3, CN's II-XII intact bilaterally and no sensory deficits noted Sensorium / Orientation: alert Motor Exam: strength 5/5 throughout Psych mental status grossly normal Skin no rashes or lesions noted MDM MDM MDM Narrative Medical decision making narrative: Differential diagnosis includes bowel obstruction, gastritis, gastroenteritis, pancreatitis, urinary tract infection, appendicitis, and pyelonephritis. CT scan of the abdomen pelvis will be obtained to assess for bowel obstruction, perforation, and appendicitis. CBC will be obtained to assess for leukocytosis and anemia. Comprehensive metabolic profile will be obtained to assess for electrolyte abnormality, renal function, and hepatic function. Lipase will be obtained to assess for pancreatitis. Serum hCG will be obtained to assess for . Lab Data Attestation: I reviewed the patient's lab results. Lab results narrative: CBC was reviewed. There is a slight leukocytosis of 11.5 but was otherwise within normal limits. Comprehensive metabolic profile was reviewed and was essentially within normal limits. Lipase was reviewed and was normal. Serum hCG was reviewed and was negative. Urinalysis was reviewed. There is no evidence of urinary tract infection or hematuria. Labs: Laboratory Results - last 24 hr 04/12/23 04/12/23 04/12/23 06:10 06:10 06:10 WBC 11.5 H RBC 5.09 Hgb 14.1 Hct 43.2 MCV 84.9 MCH 27.7 MCHC 32.6 RDW Std Deviation 42.1 RDW Coeff of Gary 13.4 Plt Count 234 MPV 10.1 Immature Gran % (Auto) 0.300 Neut % (Auto) 68.8 Lymph % (Auto) 23.2 [place] % (Auto) 6.3 Eos % (Auto) 0.9 Baso % (Auto) 0.5 Absolute Neuts (auto) 7.9 H Absolute Lymphs (auto) 2.67 Nucleated RBC % 0 Sodium 139 Potassium 3.5 Chloride 105 Carbon Dioxide 28.0 Anion Gap 6 BUN 8 Creatinine 0.86 Estim Creat Clear Calc 88.79 Est GFR (MDRD) Af Amer 96 Est GFR (MDRD) Non-Af 79 BUN/Creatinine Ratio 9.3 L Glucose 97 Calcium 8.9 Total Bilirubin 0.90 AST 12 L ALT 19 Alkaline Phosphatase 124 H Total Protein 7.5 Albumin 3.4 Globulin 4.1 Albumin/Globulin Ratio 0.8 L Lipase 19 Serum , Qual NEGATIVE Urine Color Urine Clarity Urine pH Ur Specific [place] Urine Protein Urine Glucose (UA) Urine Ketones Urine Occult Blood Urine Nitrite Urine Bilirubin Urine Urobilinogen Ur Leukocyte Esterase Urine RBC Urine WBC Ur Squamous Epith Cells Urine Bacteria Urine Mucus 04/12/23 06:15 WBC RBC Hgb Hct MCV MCH MCHC RDW Std Deviation RDW Coeff of [place] Plt Count MPV Immature Gran % (Auto) Neut % (Auto) Lymph % (Auto) [place] % (Auto) Eos % (Auto) Baso % (Auto) Absolute Neuts (auto) Absolute Lymphs (auto) Nucleated RBC % Sodium Potassium Chloride Carbon Dioxide Anion Gap BUN Creatinine Estim Creat Clear Calc Est GFR (MDRD) Af Amer Est GFR (MDRD) Non-Af BUN/Creatinine Ratio Glucose Calcium Total Bilirubin AST ALT Alkaline Phosphatase Total Protein Albumin Globulin Albumin/Globulin Ratio Lipase Serum , Qual Urine Color Yellow Urine Clarity Clear Urine pH 7.0 Ur Specific [place] 1.010 Urine Protein 15 H Urine Glucose (UA) Normal Urine Ketones Negative Urine Occult Blood 10 H Urine Nitrite Negative Urine Bilirubin Negative Urine Urobilinogen Normal Ur Leukocyte Esterase Negative Urine RBC 0 SEEN Urine WBC 0 SEEN Ur Squamous Epith Cells 0 SEEN Urine Bacteria 0 SEEN Urine Mucus 0 SEEN Radiography Diagnostic Testing: Clinical Impression(s) from Imaging Studies Abdomen/Pelvis CT 04/12/23 05:55 IMPRESSION: No acute intra-abdominal process. Electronically Signed: Nancy Ayers MD at 8:24 EDT , CT scan of the abdomen pelvis was obtained. There is no acute intra-abdominal process noted. This was interpreted by the radiologist and was also independently reviewed by myself. Treatment and Re-Evaluation :: Patient was given IV fluids and Zofran. Patient declined analgesics at this time. Patient is feeling better. Patient states she had an episode of diarrhea prior to going to CT scan. Patient felt better after this. Patient was advised of her findings. Patient was instructed to follow-up with her primary care physician in 5 to 7 days. Patient was instructed return if worse in any way. Patient understood and was agreeable with the plan. All questions were answered. Discharge Plan Triage Chief Complaint: Nausea/Vomiting ED Provider: Juan Saenz Dx/Rx/DC Orders Clinical Impression: Abdominal pain Instructions: ED Abdominal Pain Unkn Cause Fem Prescriptions: No Action ondansetron HCl 4 mg tablet 4 mg PO Q8H multivitamin Tablet 1 tab PO DAILY propranolol 10 mg tablet 10 tablet PO BID Label Comments: Take 1 tablet by mouthitwice daily. Primary Care Provider: Lawson Suarez Referrals: Lawson Suarez DO [Primary Care Provider] - 5-7 Days Disposition Disposition: Home, Self Care
[2023-04-12] MEDS: 0.9% Normal Saline 1,000 ML 1000 ML IV (06:05)
[2023-04-12] MEDS: Ondansetron 4 MG/2 ML Vial IV (06:05)
[2023-04-12 06:17] LABS: Absolute Lymphocyte Count 2.67 X10^3/uL (0.83-4.51); Absolute Neutrophil Count 7.9 X10^3/uL (2.0-7.7); Basophil# 0.06 X10^3/uL; Basophil% 0.5 % (0-1); Eosinophils% 0.9 % (0-5); Hematocrit 43.2 % (37-47); Hemoglobin 14.1 g/dL (12.0-15.0); Lymphocyte # 2.67 X10^3/ul (0.83-4.51); Lymphocyte % 23.2 % (19-41); Mean Corp Hgb Conc 32.6 g/dL (32-36); Mean Corpuscular Hgb 27.7 pg (27.0-32.0); Mean Corpuscular Volume 84.9 fL (81-99); Mean Platelet Vol. 10.1 fl (6.2-12.0); Monocyte# 0.73 X10^3/uL; Monocyte% 6.3 % (0-10); NRBC Flagged by Analyzer 0 % (0-5); Neutrophil # 7.91 X10^3/uL (2.7-7.7); Neutrophil % 68.8 % (47-70); Platelet Count 234 K/mm3 (150-450); RBC Distribution Width CV 13.4 % (11.6-14.6); RBC Distribution Width SD 42.1 fl (35.1-43.9); Red Blood Count 5.09 M/mm3 (4.2-5.4); White Blood Count 11.5 K/mm3 (4.4-11.0)
[2023-04-12 06:21] LABS: Bacteria 0 SEEN /hpf (None Seen); Mucous, Urine 0 SEEN /hpf (<or=2+); Red Blood Cells-Urine 0 SEEN /hpf (0-5); Squamous Epithelial Cells - UA 0 SEEN /hpf (5-10); White Blood Cells 0 SEEN /hpf (0-5)
[2023-04-12 06:22] LABS: Color, Urine Yellow (Yellow); Glucose, Dipstick Normal (Normal); Ketone-Dipstick Negative (Negative); Leukocyte Esterase-Dipstick Negative /ul (Negative); Nitrite-Dipstick Negative (Negative); Occult Blood-Urine 10 /ul (Negative); Protein-Dipstick 15 mg/dl (Negative); Urine Bilirubin Dipstick Negative (Negative); Urine Clarity Clear (Clear); Urine Urobilinogen Normal (Normal)
[2023-04-12 06:34] LABS: ALB/GLOB Ratio 0.8 RATIO (0.9-2.4); AST(SGOT) 12 U/L (15-37); Alanine Aminotransfer ALT/SGPT 19 U/L (13-56); Albumin, Serum 3.4 g/dL (3.2-5.0); Alkaline Phosphatase 124 U/L (45-117); Anion Gap 6 (5-15); BUN 8 mg/dL (7-18); BUN/Creat Ratio 9.3 RATIO (10-20); Calcium,Total 8.9 mg/dL (8.5-10.1); Chloride 105 mmol/L (98-107); Creatinine, Serum 0.86 mg/dL (0.55-1.02); EST Glomerular Filtration Rate 79 mL/min (>60); Est Glom Filt Rate - Afr Amer 96 mL/min (>60); Estimated Creatinine Clearance 88.79 ml/min; Globulin 4.1 g/dL (2.2-4.2); Glucose 97 mg/dL (74-106); Lipase 19 U/L (13-75); Potassium 3.5 mmol/L (3.5-5.1); Protein, Total 7.5 g/dL (6.4-8.2); Sodium Level 139 mmol/L (136-145)
[2023-04-12 06:45] LABS: Internal QC Validated? YES +Cl - CLEAR BKGD; Pregnancy, Serum, hCG Quali. NEGATIVE Negative
[2023-04-12 07:49] VITALS: PULSE 65; RESP 16; O2SAT 100
[2023-04-12 08:20] VITALS: BP 114/72
== END 2023-04-12 08:38 | disposition home or self-care (01) ==
PROVIDERS: Emergency Provider Emergency Medicine; PCP Family Medicine; Visit Provider Emergency Medicine
DX: R10.9 Unspecified abdominal pain (principal); R11.2 Nausea with vomiting, unspecified; Z79.899 Other long term (current) drug therapy
CPT/HCPCS: 74177; 80053; 81001; 83690; 84703; 85025; 96361; 96374; 99283; J7030; Q9967; J2405

== ENCOUNTER → 2024-01-17 | Outpatient (CLI) | payer OTHER, SELFPAY ==
--- NOTE | 2024-01-17 09:04 | BI_ITS ---
MAMMOGRAPHY - BILATERAL SCREENING REASON FOR EXAM: Female, 38 years old. Routine annual screening examination. PERTINENT HISTORY: Aunt with breast cancer. Prior right breast aspiration. TECHNIQUE: Digital bilateral breast ace (3D mammographic acquisition) in the CC and MLO projections. 2-D mediolateral oblique (MLO) and craniocaudad (CC) views of both breasts were obtained. CAD: Full Field Digital Mammography with Computer Added Detection was performed. COMPARISON: Comparison is made with prior study January 11, 2023. FINDINGS: Breast Composition: The breasts are extremely dense, which lowers the sensitivity of mammography. There are no dominant masses or suspicious calcifications. Stable asymmetric breast tissue within the breast tissue is seen in the upper outer quadrant of the right breast as compared to the left side. No other significant abnormalities are identified. There has been no significant change since the prior study. BI/SCRN MAMM (CAD)W/ACE BILAT IMPRESSION: Stable bilateral screening mammogram. Yearly follow-up mammogram recommended. (A) ASSESSMENT CATEGORY: BIRADS Category 2: Benign. A letter regarding these results will be sent to the patient by the facility within 30 days. Approximately 10% of breast cancers are not detected by mammography. A normal mammogram should not delay biopsy of a clinically suspicious abnormality. [id number] Electronically Signed: Scottie Vallejo MD at 10:01 EDT ,
== END | disposition home or self-care (01) ==
LOC: OPBI 09:04
PROVIDERS: PCP Family Medicine; Referring Provider Obstetrics & Gynecology; Visit Provider Obstetrics & Gynecology
DX: Z12.31 Encounter for screening mammogram for malignant neoplasm of breast (principal)
CPT/HCPCS: 77063; 77067

== ENCOUNTER 2024-03-19 22:07 | Emergency (ER) | payer OTHER, SELFPAY ==
[2024-03-19 22:11] VITALS: BP 139/84; PULSE 128; RESP 16; TEMP 36.6; O2SAT 100; BMI 35.0
[2024-03-19] MEDS: 0.9% Normal Saline (1000mL) 1,000 ML 999 ML IV ×2 (23:18→23:58)
[2024-03-19] MEDS: Diphenoxylate/Atrop 1 Tablet 2 TABLET PO (23:22)
[2024-03-19 23:51] LABS: Anion Gap 9 (5-15); BUN 9 mg/dL (7-18); BUN/Creat Ratio 10.8 RATIO (10-20); Calcium,Total 8.6 mg/dL (8.5-10.1); Chloride 105 mmol/L (98-107); Creatinine, Serum 0.84 mg/dL (0.55-1.02); EST Glomerular Filtration Rate 82 mL/min (>60); Est Glom Filt Rate - Afr Amer 99 mL/min (>60); Estimated Creatinine Clearance 113.43 ml/min; Glucose 107 mg/dL (74-106); Magnesium 2.1 mg/dL (1.6-2.6); Potassium 3.4 mmol/L (3.5-5.1); Sodium Level 137 mmol/L (136-145)
[2024-03-20 00:07] VITALS: BP 137/80; PULSE 77; RESP 16; O2SAT 99
--- NOTE | 2024-03-20 01:27 | EX.ED.DYSGE1 ---
HPI History of Present Illness Chief Complaint: Diarrhea Informant: patient and spouse/S.O. Narrative Narrative: Patient is a 38-year-old female with past medical history of POTS. She states that she went to bed overall normal on Monday evening and then awoke around 6 AM with generalized abdominal discomfort. She states she has had bouts of explosive diarrhea throughout the day. She denies any blood or discoloration to it. She states no one else at home has the symptoms. She denies any recent antibiotic use travel outside the country or livestock exposure. She states she is beginning to feel lightheaded secondary to the multiple sodas diarrhea and has concerned about dehydration and therefore comes in for evaluation [facility] Medical History POTS (postural orthostatic tachycardia syndrome) PCOS (polycystic ovarian syndrome) Genetic testing of female SVT (supraventricular tachycardia) Obesity (BMI 30.0-34.9) Segmental and somatic dysfunction of thoracic region Segmental and somatic dysfunction of pelvic region Segmental and somatic dysfunction of lumbar region Segmental and somatic dysfunction of cervical region Neck pain History of 2019 novel coronavirus disease (COVID-19) (05/07/20) Seasonal allergies Home Medications ?Medication ?Instructions ?Recorded ?Last Taken ?Type multivitamin 1 tab PO DAILY 07/29/22 Unknown History propranolol 10 mg tablet 10 tablet PO BID 09/28/22 Unknown History bupropion HCl 150 mg tablet,12 hr 150 mg PO BID 03/19/24 Unknown History sustained-release metformin 500 mg tablet 500 mg PO BID 03/19/24 Unknown History ondansetron HCl 4 mg tablet 4 mg PO Q8H PRN nausea and vomiting 03/19/24 Unknown History phentermine 15 mg capsule 15 mg PO DAILY 03/19/24 Unknown History diphenoxylate-atropine 2.5 1 tab PO 4X/DAY PRN diarrhea 5 03/20/24 Unknown Rx mg-0.025 mg tablet (Lomotil) days #20 tabs Allergy/AdvReac Type Severity Reaction Status Date / Time morphine Allergy Anaphylaxis Verified 03/19/24 22:13 Family History Grandmother Diabetes Father Factor 5 Leiden mutation, heterozygous Grandfather Heart disease Aunt Ovarian cancer Surgical History H/O laparoscopy Hx of wisdom tooth extraction (2015) Hx of cholecystectomy (2008) Social History Smoking Status: Never smoker alcohol intake: current details: occasionally substance use type: does not use caffeine: Yes what type of physical activity do you participate in: aerobics and weight training frequency: 3-4 times per week seatbelt use: always do you feel safe at home: Yes 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 ROS ED Constitutional Constitutional ED: Denies chills or fever(s) ENT ENT ED: Denies sore throat Cardiovascular Cardiovascular: Denies chest pain Respiratory/Chest Respiratory/Chest: Denies cough or dyspnea Gastrointestinal Gastrointestinal: Reports abdominal pain and diarrhea; Denies nausea or vomiting Genitourinary Genitourinary ED: Denies dysuria or hematuria Musculoskeletal Musculoskeletal: Reports myalgias Integumentary Denies rash Neurologic Neurologic: Denies headache(s) Hematologic/Lymphatic Hematologic/Lymphatic: Denies easy bleeding or easy bruising EXAM Physical Exam Const Vital Signs: 03/19/24 22:11 03/20/24 00:07 Temperature 97.8 F Temperature Source Temporal Pulse Rate 128 H 77 Respiratory Rate 16 16 Blood Pressure 139/84 H 137/80 H Blood Pressure Mean 102 99 Pulse Ox 100 99 Oxygen Delivery Method Room Air Room Air Positive well nourished, well developed and obese General Appearance ED: well developed; Negative for pallor Nutritional Appearance: obese HEENT Reports dry mucous membranes HEENT Narrative: Mucous membranes are dry and tacky However no tongue or lip swelling no oral lesions no airway edema or compromise Mouth ED: Yes dry mucous membranes Mouth: dry mucous membranes Eyes PERRL and EOMs intact bilaterally General Eye ED: Negative for pale conjunctiva or scleral icterus Neck supple Neck Narrative: No nuchal rigidity or meningeal signs Resp normal respiratory effort and clear to auscultation bilaterally Cardio regular rhythm Rate: tachycardic GI non-tender and non-distended GI Narrative: Abdomen is soft nontender nondistended with hyperactive bowel sounds. No voluntary guarding or rigidity. No pulsatile mass Auscultation: hyperactive bowel sounds Palpation: soft Extremity normal to inspection Neuro oriented x3, CN's II-XII intact bilaterally and no sensory deficits noted Sensorium / Orientation: alert Motor Exam: strength 5/5 throughout Psych mental status grossly normal Skin no rashes or lesions noted Skin Narrative: Skin turgor is increased General Skin Exam: Negative for jaundice or pallor MDM MDM MDM Narrative Medical decision making narrative: Patient arrived to the ER tachycardic and had history and exam findings concerning for dehydration. Differential diagnosis is for dehydration versus acute kidney injury versus severe electrolyte abnormality. She has not had any risk factors for infectious diarrhea such as C. difficile or E. coli or Salmonella also do not feel the need for stool sample. Basic labs were obtained and show no signs of BLAISE or severe electrolyte abnormality. After 2 L of fluid patient's vitals improved and she was able to stand without feeling lightheaded or dizzy. Therefore at this time as her symptoms are consistent with a viral stomach infection and dehydration has been improved by IV fluids I do not feel there is need for further workup and she is otherwise safe for discharge History & Record Review Discussion w/independent historian: Patient Lab Data Attestation: I reviewed the patient's lab results. Labs: Laboratory Results - last 24 hr 03/19/24 23:17 Sodium 137 Potassium 3.4 L Chloride 105 Carbon Dioxide 23.0 Anion Gap 9 BUN 9 Creatinine 0.84 Estim Creat Clear Calc 113.43 Est GFR (MDRD) Af Amer 99 Est GFR (MDRD) Non-Af 82 BUN/Creatinine Ratio 10.8 Glucose 107 H Calcium 8.6 Magnesium 2.1 Discharge Plan Triage Chief Complaint: Diarrhea ED Provider: Oskar Lin Dx/Rx/DC Orders Clinical Impression: Diarrhea, Dehydration, POTS (postural orthostatic tachycardia syndrome) Instructions: ED Dehydration (Adult), ED Diarrhea, Viral (Adult) Prescriptions: New diphenoxylate-atropine [Lomotil] 2.5-0.025 mg tablet 1 tab PO 4X/DAY PRN (Reason: diarrhea) 5 Days Qty: 20 0RF No Action multivitamin Tablet 1 tab PO DAILY propranolol 10 mg tablet 10 tablet PO BID Patient Comments: Take 1 tablet by mouthitwice daily. metformin 500 mg tablet 500 mg PO BID bupropion HCl 150 mg tablet sustained-release 12 hr 150 mg PO BID phentermine 15 mg capsule 15 mg PO DAILY ondansetron HCl 4 mg tablet 4 mg PO Q8H PRN (Reason: nausea and vomiting) Primary Care Provider: Lawson Suarez Referrals: Lawson Suarez, DO [Primary Care Provider] - Activity Restrictions/Additional Instructions: Please keep yourself well-hydrated and return to the ER should you have any worsening of symptoms or further concerns Print Language: Upper Sorbian Disposition Disposition: Home, Self Care
[2024-03-20 01:40] VITALS: BP 130/72; PULSE 75; RESP 16; TEMP 36.2; O2SAT 97
== END 2024-03-20 01:43 | disposition home or self-care (01) ==
PROVIDERS: Emergency Provider Emergency Medicine; PCP Family Medicine; Visit Provider Emergency Medicine
DX: R19.7 Diarrhea, unspecified (principal); E86.0 Dehydration; I49.8 Other specified cardiac arrhythmias; E66.9 Obesity, unspecified; Z79.899 Other long term (current) drug therapy; Z79.84 Long term (current) use of oral hypoglycemic drugs
CPT/HCPCS: 80048; 83735; 96360; 96361; 99283; J7030; A4216

== ENCOUNTER 2025-02-05 13:00 | Outpatient (RCR) | payer OTHER, SELFPAY ==
--- NOTE | 2025-01-01 12:03 | HP.PTEVAL_ITS ---
Patient's Visit Information Visit Information Visit Information: NAN GRIFFIN is a 39 year old F referred to Physical Therapy by Dr. Lawson Suarze DO with a diagnosis of R knee pain. Date of Evaluation: 01/01/25 Physical Therapist: Timo Sparrow, PT, ATC Visit Plan Frequency: 2x /Week Duration: 4-6 Weeks Plan: R LE strengthening, core stab ex's, B LE strengthening, balance and proprio, and HEP Subjective Subjective: Pt reports she has had B knee pain chronically for years. 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 Pt reports her R knee is worse than the L knee. Pt reports she had an MRI performed recently which revealed degenerative changes in the sub-patellar region. Pt denies her knee popping/locking up/or giving out. Pt reports she feels like her knee in unstable side to side when she is negotiating stairs. Pt reports she had covid in 2019, and right afterward developed POTS. Pt notes this has resulted in her not being able to tolerate exercise for a while. Now that is getting better under control. Pt denies tingling or numbness. Pt denies sleep difficulty at this time secondary to pain. Pt reports she has to squat down for her job, which she is unable to do at this time secondary to pain. 2/10 pain while sitting here at rest, 7/10 pain at worst (when she is attempting to squat) Pain B knees: Pain Intensity (Out of 10): 2 Pain Intensity Range: 7 Objective Objective: Neuro: B LE sensation is WNL to light touch. Palpation: Minor tenderness on medial joint line. Pt has crepitus with AROM. Min or lateral translation of the patella ROM: L knee 0-135 ; R knee 0-130 degrees MMT: L knee flex= 42, ext= 54; R knee flex= 43, ext= 58 #F Special testing: POS McConnels sign, pos 90/90, Pos IT band Balance/Special Test Scores Lower Extremity Functional Score: 65 Goals Goal 1:: Decrease R knee pain x 50% to aid with work requirements Goal Time Frame: 4-6 Weeks Goal 2:: Increase R knee strength x 5-10 #F to aid with squatting activity Goal Time Frame: 4-6 Weeks Goal 3:: I with HEP Goal Time Frame: 4-6 Weeks Rehabilitation Potential Physical Therapy Diagnosis: Pt has R knee pain, weakness, and limited tolerance for exercise secondary to Patello-femoral pain syndrome Rehabilitation Potential: Good Anticipated Interventions Patient/Client Instruction: Educate patient on: Condition and Plan of Care For the Purpose of:: To improve self management Therapeutic Exercise to Include: Strength training, Endurance training, Balance training, Flexibilty training and Dynamic Lumbar Stabilization For the Purpose of:: To decrease pain, To increase ROM and To improve muscle performance and motor function Text: Thank you for the opportunity to evaluate your patient. For Medicare and Medicare HMO plans, please review the plan of care and approve it. It will need to be FAXED BACK to us at [phone] for Medicare purposes. For Medicare only, by signing this I certify the plan of care. Please let me know if there are questions or concerns regarding this plan of care. Physician Signature: Date:
--- NOTE | 2025-02-05 14:47 | HP.PTDCSUM ---
Discharge Summary D/C summary: It has been my pleasure to treat NAN GRIFFIN referred by Dr. Lawson Suarez DO, with the diagnosis of R knee pain for a total of 8 visit(s). Discharge Date: Please see the following information for a summary of their discharge status. Subjective Subjective: Pt reports the pain level has improved, but she still feels a little unstable Pain B knees: Pain Intensity (Out of 10): 1 Overall Improvement % Improvement: 40 Objective Objective/Function: R knee pain 0-1/10 R knee MMT: flex= 45, ext= 53 #F Pt is I with HEP Goals Goal 1:: Decrease R knee pain x 50% to aid with work requirements Goal Progress: Goal Met Goal 2:: Increase R knee strength x 5-10 #F to aid with squatting activity Goal Progress: Goal Met Goal 3:: I with HEP Goal Progress: Goal Met Plan Plan: Discharge to HEP D/C Information d/c sentence: If there are questions or concerns regarding this patient's physical therapy, please feel free to call me at [phone]. Thank you for the referral of this patient. Sincerely, Timo Sparrow, PT, ATC Balance/Gait/Functional tests Balance/Special Test Scores Lower Extremity Functional Score: 71 Improvement % Improvement: 40
== END 2025-02-05 19:00 | disposition home or self-care (01) ==
LOC: PT 13:00
PROVIDERS: PCP Family Medicine; Referring Provider Family Medicine; Visit Provider Family Medicine
DX: M25.561 Pain in right knee (principal)
CPT/HCPCS: 97110; 97161; 97530